=== PATIENT | female | born 1955 | race Caucasian/White ===

== ENCOUNTER 2021-01-23 10:45 | Emergency (ER) | payer OTHER ==
[~2021-01-23] VITALS: Ht 165.1 cm; Wt 108.4 kg
[2021-01-23 11:38] LABS: Basophils # (auto) 0.1 10 ^3/uL (0-0.2); Basophils % (auto) 0.7 % (0.0-2.0); Eosinophils # (auto) 0.1 10 ^3/uL (0-0.8); Eosinophils % (auto) 0.7 % (0.0-7.0); Hemoglobin 14.4 g/dL (12.2-16.2); Lymphocytes # (auto) 1.7 10 ^3/uL (0.4-5.4); Lymphocytes % (auto) 14.5 % (10.0-50.0); Mean Corpuscular Hemoglobin 30.1 pg (28.0-32.0); Mean Corpuscular Hgb Conc. 33.4 g/dL (32.0-36.0); Monocytes # (auto) 0.6 10 ^3/uL (0-1.3); Monocytes % (auto) 5.3 % (0.0-12.0); Neutrophils # (auto) 9.3 10 ^3/uL (1.6-8.6); Neutrophils % (auto) 78.8 % (37.0-80.0); Nucleated Red Blood Cells % 0.1 %; Platelet Count (auto) 257 10^3/uL (140-450); Red Blood Cells 4.77 10^6/uL (4.0-5.20); Red Cell Distribution Width 14.3 % (11.8-14.3); White Blood Cell 11.8 10^3/uL (4.4-10.8)
[2021-01-23 11:50] LABS: Albumin 3.2 g/dL (3.4-5.0); Anion Gap 4 (5-15); Blood Urea Nitrogen 19 mg/dL (7-18); Calcium 10.1 mg/dL (8.5-10.1); Carbon Dioxide 30 mmol/L (21-32); Chloride 106 mmol/L (98-107); Glucose 100 mg/dL (74-106); INR 1.16 (0.9-1.15); Partial Thromboplastin Time 40.4 sec (23.0-31.2); Potassium 4.2 mmol/L (3.5-5.1); Sodium 140 mmol/L (136-145)
[2021-01-23 11:55] LABS: Alanine Aminotransferase 17 U/L (13-56); Alkaline Phosphatase 107 U/L (45-117); Aspartate Aminotransferase 10 U/L (15-37); BUN/Creatinine Ratio 25.7; Bilirubin, Total 0.4 mg/dL (0.2-1.0); GFR African American 102 mL/min; GFR Non-African American 84 mL/min; Total Protein 7.1 g/dL (6.4-8.2)
[2021-01-23] MEDS ORDERED: ENOXAPARIN SOD 120 MG/0.8 ML SYRINGE SC ONE (13:45)
[2021-01-23 13:51] LABS: Urine Bacteria NONE SEEN /hpf (None Seen); Urine Blood Negative /uL (Negative); Urine Specific Gravity 1.027 (1.001-1.035); Urine WBC 1 /hpf (0 - 5)
[2021-01-23] MEDS ORDERED: FUROSEMIDE 40 MG/4 ML VIAL IV ONE (14:00)
[2021-01-23] MEDS ORDERED: cefTRIAXone 1GM/50ML D5W 50 ML IV ONE (14:00)
[2021-01-23] MEDS ORDERED: HYDROmorphone HCL 2 MG/ML VL IV ONE (16:15)
[2021-01-23] MEDS ORDERED: ONDANSETRON HCL 4 MG/2 ML VIAL IV ONE (16:15)
[2021-01-23 16:28] VITALS: BP 161/89
== END 2021-01-23 16:50 | disposition designated cancer center or children's hospital (05) ==
LOC: EDBD 10:45 → ER 10:45
DX: M79.89 Other specified soft tissue disorders (principal); I49.3 Ventricular premature depolarization; I10 Essential (primary) hypertension; E11.9 Type 2 diabetes mellitus without complications; Z20.822 Contact with and (suspected) exposure to COVID-19
CPT/HCPCS: 36415; 71045; 73201; 80053; 81001; 82962; 83880; 84484; 85025; 85610; 85730; 87426; 93005; 93971; 96365; 96372; 96375; 99285; C9803; J0696; J1170; J1650; J1940; J2405; U0003

== ENCOUNTER 2021-07-26 17:08 | Inpatient (IN) | payer MEDICARE, OTHER ==
[~2021-07-26] VITALS: Ht 167.6 cm; Wt 111.3 kg
[2021-07-26] MEDS ORDERED: FUROSEMIDE 40 MG/4 ML VIAL IV ONE (18:00)
[2021-07-26 18:33] LABS: Basophils # (auto) 0.1 10 ^3/uL (0-0.2); Eosinophils # (auto) 0.1 10 ^3/uL (0-0.8); Eosinophils % (auto) 0.9 % (0.0-7.0); Hemoglobin 14.7 g/dL (12.2-16.2); Lymphocytes # (auto) 1.4 10 ^3/uL (0.4-5.4); Mean Corpuscular Hemoglobin 27.5 pg (28.0-32.0); Mean Corpuscular Hgb Conc. 31.4 g/dL (32.0-36.0); Mean Corpuscular Volume 87.7 fL (80.0-100.0); Monocytes # (auto) 0.6 10 ^3/uL (0-1.3); Neutrophils # (auto) 5.2 10 ^3/uL (1.6-8.6); Neutrophils % (auto) 71.1 % (37.0-80.0); Nucleated Red Blood Cells % 0.4 %; Red Blood Cells 5.36 10^6/uL (4.0-5.20); Red Cell Distribution Width 17.2 % (11.8-14.3); White Blood Cell 7.2 10^3/uL (4.4-10.8)
[2021-07-26 18:50] LABS: INR 1.31 (0.9-1.15); Partial Thromboplastin Time 23.7 sec (23.6-33.0)
[2021-07-26 18:53] LABS: Chloride 108 mmol/L (98-107); Potassium 4.9 mmol/L (3.5-5.1); Sodium 143 mmol/L (136-145)
[2021-07-26 19:02] LABS: Alanine Aminotransferase 51 U/L (13-56); Albumin 2.5 g/dL (3.4-5.0); Alkaline Phosphatase 226 U/L (45-117); Aspartate Aminotransferase 27 U/L (15-37); BUN/Creatinine Ratio 43.4; Bilirubin, Total 0.7 mg/dL (0.2-1.0); Blood Urea Nitrogen 46 mg/dL (7-18); Calcium 9.3 mg/dL (8.5-10.1); Carbon Dioxide 32 mmol/L (21-32); GFR African American 67 mL/min; GFR Non-African American 55 mL/min; Glucose 79 mg/dL (74-106); Total Protein 5.9 g/dL (6.4-8.2)
[2021-07-26 19:06] LABS: Anion Gap 3 (5-15)
[2021-07-26 22:36] LABS: Urine Bacteria FEW /hpf (None Seen); Urine Blood 1+ /uL (Negative); Urine Hyaline Cast FEW /lpf (0 - 2); Urine Mucus FEW (None Seen); Urine Specific Gravity 1.008 (1.001-1.035); Urine WBC 4 /hpf (0 - 5)
[2021-07-27] MEDS ORDERED: FUROSEMIDE 40 MG/4 ML VIAL IV ONE (10:00)
[2021-07-27 10:25] VITALS: BP 126/84
[2021-07-27 12:00] VITALS: BP 136/74
[2021-07-27] MEDS ORDERED: MORPHINE SULFATE INJECTION 2 MG/ML SYRG IV PRN ×2 (13:30→15:15)
[2021-07-27] MEDS ORDERED: NITROGLYCERIN 0.4 MG SL TAB SL PRN ×2 (13:30→15:15)
[2021-07-27 14:00] VITALS: BP 123/81
[2021-07-27] MEDS ORDERED: ALBUTEROL SULF 2.5 MG/0.5ML(0.5%) NEB SOLN NEB ONE (14:15)
[2021-07-27] MEDS ORDERED: IPRATROPIUM BROM 0.5 MG/2.5ML INH SOL NEB ONE (14:15)
[2021-07-27] MEDS ORDERED: methylPREDNISolone SOD SUCC 125 MG/2 ML VL IV ONE (15:15)
[2021-07-27] MEDS: SODIUM CHLORIDE 0.9% 1,000 ML IV SCH (15:15)
[2021-07-27] MEDS: ATORVASTATIN 20 MG TAB PO ONE (15:15)
[2021-07-27] MEDS ORDERED: levoFLOXacin 500MG 100 ML IV ONE (15:15)
[2021-07-27] MEDS ORDERED: METOPROLOL SUCCINATE XL 50 MG TAB PO ONE (15:15)
[2021-07-27] MEDS ORDERED: MAGNESIUM SULFATE 1GM/100ML 100 ML IV ONE (15:15)
[2021-07-27] MEDS ORDERED: DEXTROSE (50%) 50ML SYRG IV PRN (15:15)
[2021-07-27] MEDS ORDERED: POTASSIUM CHL 20 Meq TABLET PO ONE (15:15)
[2021-07-27] MEDS ORDERED: FAMOTIDINE (10MG/ML) 2ML VL IV ONE (15:15)
[2021-07-27 16:00] VITALS: BP 108/75
[2021-07-27] MEDS: ACCU-CHEK COMFORT CURVE STRIP VI SCH ×2 (16:40→22:23)
[2021-07-27] MEDS: InsuLIN REG 1unit/0.01ml Soln (100units/ml) SC SCH ×2 (17:00→22:30)
[2021-07-27] MEDS: FUROSEMIDE 40 MG/4 ML VIAL IV SCH (18:40)
[2021-07-27] MEDS: IPRATROPIUM BROM 0.5 MG/2.5ML INH SOL NEB SCH (19:35)
[2021-07-27] MEDS: ALBUTEROL SULF 2.5 MG/0.5ML(0.5%) NEB SOLN NEB SCH (19:35)
[2021-07-27 21:01] LABS: INR 1.21 (0.9-1.15)
[2021-07-27] MEDS: APIXABAN 2.5 MG TAB PO SCH (22:30)
[2021-07-27] MEDS: methylPREDNISolone SOD SUCC 40 MG/ML VL IV SCH (22:30)
[2021-07-27] MEDS: ATORVASTATIN 20 MG TAB PO SCH (22:30)
[2021-07-27] MEDS: FAMOTIDINE (10MG/ML) 2ML VL IV SCH (22:30)
[2021-07-27 22:53] VITALS: BP 132/67
[2021-07-28] MEDS: ALBUTEROL SULF 2.5 MG/0.5ML(0.5%) NEB SOLN NEB SCH ×7 (00:39→22:21)
[2021-07-28] MEDS: IPRATROPIUM BROM 0.5 MG/2.5ML INH SOL NEB SCH ×7 (00:39→22:21)
[2021-07-28 05:00] VITALS: BP 128/83
[2021-07-28] MEDS: FUROSEMIDE 40 MG/4 ML VIAL IV SCH ×2 (05:38→18:22)
[2021-07-28] MEDS: methylPREDNISolone SOD SUCC 40 MG/ML VL IV SCH ×3 (05:38→21:25)
[2021-07-28] MEDS: InsuLIN REG 1unit/0.01ml Soln (100units/ml) SC SCH ×4 (07:00→21:29)
[2021-07-28] MEDS: ACCU-CHEK COMFORT CURVE STRIP VI SCH ×4 (07:05→21:36)
[2021-07-28 08:00] VITALS: BP 133/77
[2021-07-28] MEDS: levoFLOXacin 500MG 100 ML IV SCH (10:46)
[2021-07-28] MEDS: FAMOTIDINE (10MG/ML) 2ML VL IV SCH ×2 (10:46→21:25)
[2021-07-28] MEDS: APIXABAN 2.5 MG TAB PO SCH ×2 (10:47→21:26)
[2021-07-28] MEDS: ASPirin 81 mg TAB PO SCH (10:47)
[2021-07-28] MEDS: POTASSIUM CHL 20 Meq TABLET PO SCH (10:47)
[2021-07-28] MEDS: LISINOPRIL 5 MG TAB PO SCH (10:48)
[2021-07-28] MEDS: METOPROLOL SUCCINATE XL 50 MG TAB PO SCH (10:48)
[2021-07-28] MEDS: SODIUM CHLORIDE 0.9% 1,000 ML IV SCH (11:15)
[2021-07-28 13:00] VITALS: BP 164/87
[2021-07-28] MEDS ORDERED: IOHEXOL 350 MG/ML 100ML IJ ONE (15:46)
[2021-07-28 16:00] VITALS: BP 126/81
[2021-07-28] MEDS: OXYCODONE W/ ACETAMINOPHEN 5/325MG TABLET PO PRN (19:29)
[2021-07-28] MEDS: ATORVASTATIN 20 MG TAB PO SCH (21:26)
[2021-07-28 22:00] VITALS: BP 133/79
[2021-07-29] MEDS: IPRATROPIUM BROM 0.5 MG/2.5ML INH SOL NEB SCH ×6 (02:48→21:37)
[2021-07-29] MEDS: ALBUTEROL SULF 2.5 MG/0.5ML(0.5%) NEB SOLN NEB SCH ×6 (02:48→21:37)
[2021-07-29 05:00] VITALS: BP 132/91
[2021-07-29] MEDS: methylPREDNISolone SOD SUCC 40 MG/ML VL IV SCH ×3 (05:44→22:00)
[2021-07-29] MEDS: FUROSEMIDE 40 MG/4 ML VIAL IV SCH ×2 (05:45→17:28)
[2021-07-29] MEDS: SODIUM CHLORIDE 0.9% 1,000 ML IV SCH (05:52)
[2021-07-29] MEDS: InsuLIN REG 1unit/0.01ml Soln (100units/ml) SC SCH ×4 (06:18→22:00)
[2021-07-29] MEDS: ACCU-CHEK COMFORT CURVE STRIP VI SCH ×4 (06:18→22:00)
[2021-07-29] MEDS ORDERED: PERCOT PO (07:32)
[2021-07-29 08:00] VITALS: BP 138/68
[2021-07-29] MEDS: APIXABAN 2.5 MG TAB PO SCH (09:15)
[2021-07-29] MEDS: ASPirin 81 mg TAB PO SCH (09:15)
[2021-07-29] MEDS: FAMOTIDINE (10MG/ML) 2ML VL IV SCH ×2 (09:15→22:00)
[2021-07-29] MEDS: levoFLOXacin 500MG 100 ML IV SCH (09:15)
[2021-07-29] MEDS: LISINOPRIL 5 MG TAB PO SCH (09:16)
[2021-07-29] MEDS: METOPROLOL SUCCINATE XL 50 MG TAB PO SCH (09:16)
[2021-07-29] MEDS: POTASSIUM CHL 20 Meq TABLET PO SCH (09:16)
[2021-07-29 12:00] VITALS: BP 140/95
[2021-07-29 16:00] VITALS: BP 152/77
[2021-07-29] MEDS: OXYCODONE W/ ACETAMINOPHEN 5/325MG TABLET PO PRN (17:59)
[2021-07-29 22:00] VITALS: BP 140/82
[2021-07-29] MEDS: CARVEDILOL 12.5 MG TAB PO SCH (22:00)
[2021-07-29] MEDS: ATORVASTATIN 20 MG TAB PO SCH (22:00)
[2021-07-30] MEDS: IPRATROPIUM BROM 0.5 MG/2.5ML INH SOL NEB SCH ×7 (02:08→21:44)
[2021-07-30] MEDS: ALBUTEROL SULF 2.5 MG/0.5ML(0.5%) NEB SOLN NEB SCH ×7 (02:08→21:44)
[2021-07-30] MEDS: OXYCODONE W/ ACETAMINOPHEN 5/325MG TABLET PO PRN (03:36)
[2021-07-30 05:00] VITALS: BP 146/71
[2021-07-30] MEDS: FUROSEMIDE 40 MG/4 ML VIAL IV SCH ×2 (06:00→18:00)
[2021-07-30] MEDS: ACCU-CHEK COMFORT CURVE STRIP VI SCH ×4 (06:26→21:52)
[2021-07-30] MEDS: methylPREDNISolone SOD SUCC 40 MG/ML VL IV SCH ×3 (06:27→21:51)
[2021-07-30] MEDS: InsuLIN REG 1unit/0.01ml Soln (100units/ml) SC SCH ×4 (06:28→22:27)
[2021-07-30 07:24] LABS: Basophils # (auto) 0 10 ^3/uL (0-0.2); Basophils % (auto) 0.3 % (0.0-2.0); Eosinophils # (auto) 0 10 ^3/uL (0-0.8); Hematocrit 45.4 % (36.0-46.0); Hemoglobin 14.7 g/dL (12.2-16.2); Lymphocytes # (auto) 0.4 10 ^3/uL (0.4-5.4); Lymphocytes % (auto) 3.9 % (10.0-50.0); Mean Corpuscular Hemoglobin 28.1 pg (28.0-32.0); Mean Corpuscular Hgb Conc. 32.3 g/dL (32.0-36.0); Mean Corpuscular Volume 86.9 fL (80.0-100.0); Monocytes # (auto) 0.2 10 ^3/uL (0-1.3); Monocytes % (auto) 2.3 % (0.0-12.0); Neutrophils % (auto) 93.5 % (37.0-80.0); Nucleated Red Blood Cells % 0.2 %; Red Blood Cells 5.22 10^6/uL (4.0-5.20); Red Cell Distribution Width 17.1 % (11.8-14.3); White Blood Cell 9.6 10^3/uL (4.4-10.8)
[2021-07-30 07:28] LABS: INR 1.27 (0.9-1.15); Partial Thromboplastin Time 25.6 sec (23.6-33.0)
[2021-07-30 07:29] LABS: BUN/Creatinine Ratio 35.3; Calcium 9.5 mg/dL (8.5-10.1); Potassium 4.1 mmol/L (3.5-5.1)
[2021-07-30 09:00] VITALS: BP 154/80
[2021-07-30] MEDS: LISINOPRIL 5 MG TAB PO SCH (09:53)
[2021-07-30] MEDS: levoFLOXacin 500MG 100 ML IV SCH (09:53)
[2021-07-30] MEDS: POTASSIUM CHL 20 Meq TABLET PO SCH (09:53)
[2021-07-30] MEDS: ASPirin 81 mg TAB PO SCH (09:53)
[2021-07-30] MEDS: CARVEDILOL 12.5 MG TAB PO SCH ×2 (09:53→22:00)
[2021-07-30] MEDS: FAMOTIDINE (10MG/ML) 2ML VL IV SCH ×2 (09:53→21:51)
[2021-07-30] MEDS ORDERED: LIDOCAINE 2%HCL (LOCAL ANESTH.) INJ 20ML MDV ONE (10:22)
[2021-07-30] MEDS ORDERED: MIDAZOLAM HCL 2MG/2ML 2ml VIAL (1mg/ml) ONE (10:45)
[2021-07-30] MEDS ORDERED: fentaNYL CITRATE 100 MCG/2 ML VL ONE (10:45)
[2021-07-30] MEDS ORDERED: VANCOMYCIN HCL 1000 MG VL ONE (10:45)
[2021-07-30] MEDS ORDERED: VANCOMYCIN 1GM/250ML 250 ML IV ONE (10:46)
[2021-07-30 15:49] VITALS: BP 147/76
[2021-07-30 17:26] VITALS: BP 129/101
[2021-07-30] MEDS: APIXABAN 5 MG TAB PO SCH (21:51)
[2021-07-30] MEDS: ATORVASTATIN 20 MG TAB PO SCH (21:52)
[2021-07-30 22:00] VITALS: BP 154/103
[2021-07-31] MEDS: ALBUTEROL SULF 2.5 MG/0.5ML(0.5%) NEB SOLN NEB SCH ×6 (03:02→20:53)
[2021-07-31] MEDS: IPRATROPIUM BROM 0.5 MG/2.5ML INH SOL NEB SCH ×6 (03:02→20:53)
[2021-07-31 05:00] VITALS: BP 140/93
[2021-07-31] MEDS: FUROSEMIDE 40 MG/4 ML VIAL IV SCH ×2 (06:00→17:35)
[2021-07-31] MEDS: methylPREDNISolone SOD SUCC 40 MG/ML VL IV SCH ×3 (06:00→21:31)
[2021-07-31] MEDS: ACCU-CHEK COMFORT CURVE STRIP VI SCH ×4 (06:22→21:36)
[2021-07-31] MEDS: InsuLIN REG 1unit/0.01ml Soln (100units/ml) SC SCH ×4 (06:23→21:41)
[2021-07-31 09:00] VITALS: BP 141/100
[2021-07-31] MEDS: levoFLOXacin 500MG 100 ML IV SCH (09:39)
[2021-07-31] MEDS: FAMOTIDINE (10MG/ML) 2ML VL IV SCH ×2 (09:39→21:31)
[2021-07-31] MEDS: ASPirin 81 mg TAB PO SCH (09:39)
[2021-07-31] MEDS: POTASSIUM CHL 20 Meq TABLET PO SCH (09:40)
[2021-07-31] MEDS: CARVEDILOL 12.5 MG TAB PO SCH ×2 (09:40→21:34)
[2021-07-31] MEDS: APIXABAN 5 MG TAB PO SCH ×2 (09:40→21:35)
[2021-07-31] MEDS ORDERED: METOPROLOL TARTRATE 50 MG TAB PO ONE (10:00)
[2021-07-31] MEDS ORDERED: SACUBITRIL-VALSARTAN 24mg/26mg TAB PO SCH (10:00)
[2021-07-31 13:00] VITALS: BP 104/70
[2021-07-31] MEDS ORDERED: ALPRAZolam 0.5 MG TAB PO PRN (16:45)
[2021-07-31] MEDS ORDERED: DIGOXIN 0.25 MG TAB PO ONE (16:45)
[2021-07-31 17:00] VITALS: BP 158/106
[2021-07-31] MEDS: LORazepam 2MG/ML-1ML VIAL IV PRN (18:29)
[2021-07-31] MEDS: SACUBITRIL-VALSARTAN 24mg/26mg TAB PO SCH (21:31)
[2021-07-31] MEDS: ATORVASTATIN 20 MG TAB PO SCH (21:35)
[2021-07-31 22:02] VITALS: BP 117/86
[2021-07-31] MEDS: OXYCODONE W/ ACETAMINOPHEN 5/325MG TABLET PO PRN (23:09)
[2021-08-01] VITALS (7 sets, daily range): BP systolic 109–142; BP diastolic 55–76
[2021-08-01] MEDS: ALBUTEROL SULF 2.5 MG/0.5ML(0.5%) NEB SOLN NEB SCH ×6 (02:29→22:30)
[2021-08-01] MEDS: IPRATROPIUM BROM 0.5 MG/2.5ML INH SOL NEB SCH ×6 (02:29→22:30)
[2021-08-01] MEDS: methylPREDNISolone SOD SUCC 40 MG/ML VL IV SCH (06:03)
[2021-08-01] MEDS: ACCU-CHEK COMFORT CURVE STRIP VI SCH ×4 (06:04→22:02)
[2021-08-01] MEDS: FUROSEMIDE 40 MG/4 ML VIAL IV SCH ×2 (06:04→17:26)
[2021-08-01] MEDS: InsuLIN REG 1unit/0.01ml Soln (100units/ml) SC SCH ×4 (06:09→22:08)
[2021-08-01] MEDS ORDERED: METOPROLOL TARTRATE 50 MG TAB PO ONE (10:00)
[2021-08-01] MEDS: FAMOTIDINE (10MG/ML) 2ML VL IV SCH ×2 (10:48→22:00)
[2021-08-01] MEDS: levoFLOXacin 500MG 100 ML IV SCH (10:48)
[2021-08-01] MEDS: ASPirin 81 mg TAB PO SCH (10:49)
[2021-08-01] MEDS: APIXABAN 5 MG TAB PO SCH ×2 (10:50→22:00)
[2021-08-01] MEDS: POTASSIUM CHL 20 Meq TABLET PO SCH (10:50)
[2021-08-01] MEDS: CARVEDILOL 12.5 MG TAB PO SCH ×2 (10:50→22:01)
[2021-08-01] MEDS: SACUBITRIL-VALSARTAN 24mg/26mg TAB PO SCH ×2 (10:50→22:01)
[2021-08-01] MEDS: DIGOXIN 0.125 MG TAB PO SCH (10:51)
[2021-08-01] MEDS: OXYCODONE W/ ACETAMINOPHEN 5/325MG TABLET PO PRN (19:32)
[2021-08-01] MEDS: ATORVASTATIN 20 MG TAB PO SCH (22:01)
[2021-08-01] MEDS: LORazepam 2MG/ML-1ML VIAL IV PRN (22:08)
[2021-08-02] MEDS: ALBUTEROL SULF 2.5 MG/0.5ML(0.5%) NEB SOLN NEB SCH ×6 (02:48→22:50)
[2021-08-02] MEDS: IPRATROPIUM BROM 0.5 MG/2.5ML INH SOL NEB SCH ×6 (02:48→22:50)
[2021-08-02 05:02] VITALS: BP 129/81
[2021-08-02] MEDS: FUROSEMIDE 40 MG/4 ML VIAL IV SCH ×2 (05:27→17:32)
[2021-08-02] MEDS: ACCU-CHEK COMFORT CURVE STRIP VI SCH ×4 (06:19→21:38)
[2021-08-02] MEDS: InsuLIN REG 1unit/0.01ml Soln (100units/ml) SC SCH ×4 (06:20→21:40)
[2021-08-02 08:00] VITALS: BP 112/55
[2021-08-02 09:00] VITALS: BP 112/55
[2021-08-02] MEDS ORDERED: ACETAMINOPHEN 325 MG TAB PO PRN (10:30)
[2021-08-02] MEDS: levoFLOXacin 500MG 100 ML IV SCH (10:41)
[2021-08-02] MEDS: ASPirin 81 mg TAB PO SCH (10:42)
[2021-08-02] MEDS: methylPREDNISolone SOD SUCC 40 MG/ML VL IV SCH (10:42)
[2021-08-02] MEDS: FAMOTIDINE (10MG/ML) 2ML VL IV SCH ×2 (10:42→21:37)
[2021-08-02] MEDS: DIGOXIN 0.125 MG TAB PO SCH (10:43)
[2021-08-02] MEDS: APIXABAN 5 MG TAB PO SCH ×2 (10:43→21:37)
[2021-08-02] MEDS: SACUBITRIL-VALSARTAN 24mg/26mg TAB PO SCH ×2 (10:43→21:37)
[2021-08-02] MEDS: CARVEDILOL 12.5 MG TAB PO SCH ×2 (10:43→22:00)
[2021-08-02] MEDS ORDERED: MAGNESIUM SULFATE 1GM/100ML 100 ML IV ONE (11:00)
[2021-08-02 13:00] VITALS: BP 121/59
[2021-08-02] MEDS: INSULIN LANTUS (GLARGINE) 1 /0.01ml (100units/ml) SC SCH (14:53)
[2021-08-02 16:50] VITALS: BP 99/76
[2021-08-02] MEDS: ATORVASTATIN 20 MG TAB PO SCH (21:38)
[2021-08-02 21:54] VITALS: BP 91/57
[2021-08-03] MEDS: OXYCODONE W/ ACETAMINOPHEN 5/325MG TABLET PO PRN ×2 (00:49→20:37)
[2021-08-03] MEDS: IPRATROPIUM BROM 0.5 MG/2.5ML INH SOL NEB SCH ×6 (02:40→20:40)
[2021-08-03] MEDS: ALBUTEROL SULF 2.5 MG/0.5ML(0.5%) NEB SOLN NEB SCH ×6 (02:40→20:40)
[2021-08-03 05:00] VITALS: BP 109/64
[2021-08-03] MEDS: InsuLIN REG 1unit/0.01ml Soln (100units/ml) SC SCH ×4 (06:33→22:42)
[2021-08-03] MEDS: INSULIN LANTUS (GLARGINE) 1 /0.01ml (100units/ml) SC SCH (06:33)
[2021-08-03] MEDS: ACCU-CHEK COMFORT CURVE STRIP VI SCH ×4 (06:35→22:18)
[2021-08-03] MEDS: FUROSEMIDE 40 MG/4 ML VIAL IV SCH ×2 (06:36→18:20)
[2021-08-03 09:00] VITALS: BP 97/75
[2021-08-03] MEDS: methylPREDNISolone SOD SUCC 40 MG/ML VL IV SCH (09:32)
[2021-08-03] MEDS: ASPirin 81 mg TAB PO SCH (09:32)
[2021-08-03] MEDS: SACUBITRIL-VALSARTAN 24mg/26mg TAB PO SCH ×2 (09:33→22:17)
[2021-08-03] MEDS: APIXABAN 5 MG TAB PO SCH ×2 (09:33→22:17)
[2021-08-03] MEDS: CARVEDILOL 12.5 MG TAB PO SCH ×2 (09:34→22:17)
[2021-08-03] MEDS: levoFLOXacin 500MG 100 ML IV SCH (09:35)
[2021-08-03] MEDS: DIGOXIN 0.125 MG TAB PO SCH (09:36)
[2021-08-03] MEDS: FAMOTIDINE (10MG/ML) 2ML VL IV SCH ×2 (11:28→22:16)
[2021-08-03 13:00] VITALS: BP 114/79
[2021-08-03 17:00] VITALS: BP 111/65
[2021-08-03 22:00] VITALS: BP 111/53
[2021-08-03] MEDS: ATORVASTATIN 20 MG TAB PO SCH (22:17)
[2021-08-04 05:00] VITALS: BP 102/50
[2021-08-04 05:51] LABS: Basophils # (auto) 0 10 ^3/uL (0-0.2); Basophils % (auto) 0.1 % (0.0-2.0); Eosinophils # (auto) 0 10 ^3/uL (0-0.8); Eosinophils % (auto) 0.2 % (0.0-7.0); Hematocrit 49.5 % (36.0-46.0); Lymphocytes # (auto) 0.6 10 ^3/uL (0.4-5.4); Lymphocytes % (auto) 5.3 % (10.0-50.0); Mean Corpuscular Hemoglobin 27.7 pg (28.0-32.0); Mean Corpuscular Hgb Conc. 32.2 g/dL (32.0-36.0); Monocytes # (auto) 0.9 10 ^3/uL (0-1.3); Monocytes % (auto) 7.4 % (0.0-12.0); Neutrophils # (auto) 10.7 10 ^3/uL (1.6-8.6); Red Blood Cells 5.76 10^6/uL (4.0-5.20); White Blood Cell 12.3 10^3/uL (4.4-10.8)
[2021-08-04] MEDS: FUROSEMIDE 40 MG/4 ML VIAL IV SCH ×2 (06:00→18:00)
[2021-08-04 06:04] LABS: Potassium 3.5 mmol/L (3.5-5.1)
[2021-08-04 06:15] LABS: Albumin 2.1 g/dL (3.4-5.0); BUN/Creatinine Ratio 35.8; Calcium 9.1 mg/dL (8.5-10.1)
[2021-08-04 06:18] LABS: Bilirubin, Total 1.7 mg/dL (0.2-1.0); Total Protein 5.3 g/dL (6.4-8.2)
[2021-08-04] MEDS: InsuLIN REG 1unit/0.01ml Soln (100units/ml) SC SCH ×4 (06:32→21:58)
[2021-08-04] MEDS: INSULIN LANTUS (GLARGINE) 1 /0.01ml (100units/ml) SC SCH (06:33)
[2021-08-04] MEDS: ACCU-CHEK COMFORT CURVE STRIP VI SCH ×4 (06:33→21:50)
[2021-08-04] MEDS: IPRATROPIUM BROM 0.5 MG/2.5ML INH SOL NEB SCH ×5 (06:57→21:36)
[2021-08-04] MEDS: ALBUTEROL SULF 2.5 MG/0.5ML(0.5%) NEB SOLN NEB SCH ×5 (06:57→21:36)
[2021-08-04 09:00] VITALS: BP 116/66
[2021-08-04] MEDS: FAMOTIDINE (10MG/ML) 2ML VL IV SCH ×2 (09:51→21:49)
[2021-08-04] MEDS: levoFLOXacin 500MG 100 ML IV SCH (09:51)
[2021-08-04] MEDS: CARVEDILOL 12.5 MG TAB PO SCH ×2 (09:52→21:49)
[2021-08-04] MEDS: SACUBITRIL-VALSARTAN 24mg/26mg TAB PO SCH ×2 (09:52→21:49)
[2021-08-04] MEDS: ASPirin 81 mg TAB PO SCH (09:52)
[2021-08-04] MEDS: methylPREDNISolone SOD SUCC 40 MG/ML VL IV SCH (09:52)
[2021-08-04] MEDS: APIXABAN 5 MG TAB PO SCH ×2 (09:52→21:49)
[2021-08-04] MEDS: DIGOXIN 0.125 MG TAB PO SCH (09:53)
[2021-08-04 13:00] VITALS: BP 149/61
[2021-08-04 16:49] VITALS: BP 110/69
[2021-08-04] MEDS: LORazepam 2MG/ML-1ML VIAL IV PRN (17:15)
[2021-08-04] MEDS: Glucerna Carbsteady SHAKE Vanilla 8oz PO SCH (18:00)
[2021-08-04] MEDS: OXYCODONE W/ ACETAMINOPHEN 5/325MG TABLET PO PRN (20:20)
[2021-08-04] MEDS: ATORVASTATIN 20 MG TAB PO SCH (21:49)
[2021-08-04 22:00] VITALS: BP 129/66
[2021-08-05] MEDS: IPRATROPIUM BROM 0.5 MG/2.5ML INH SOL NEB SCH ×5 (02:02→23:35)
[2021-08-05] MEDS: ALBUTEROL SULF 2.5 MG/0.5ML(0.5%) NEB SOLN NEB SCH ×5 (02:02→23:35)
[2021-08-05 05:00] VITALS: BP 131/72
[2021-08-05] MEDS: ACCU-CHEK COMFORT CURVE STRIP VI SCH ×3 (06:21→21:59)
[2021-08-05] MEDS: InsuLIN REG 1unit/0.01ml Soln (100units/ml) SC SCH ×3 (06:22→22:02)
[2021-08-05] MEDS: INSULIN LANTUS (GLARGINE) 1 /0.01ml (100units/ml) SC SCH (06:28)
[2021-08-05] MEDS: FUROSEMIDE 40 MG/4 ML VIAL IV SCH ×2 (06:29→18:41)
[2021-08-05 06:57] LABS: Basophils # (auto) 0 10 ^3/uL (0-0.2); Basophils % (auto) 0.2 % (0.0-2.0); Eosinophils # (auto) 0 10 ^3/uL (0-0.8); Eosinophils % (auto) 0.1 % (0.0-7.0); Hematocrit 50.2 % (36.0-46.0); Lymphocytes # (auto) 0.6 10 ^3/uL (0.4-5.4); Lymphocytes % (auto) 4.5 % (10.0-50.0); Mean Corpuscular Hemoglobin 27.6 pg (28.0-32.0); Mean Corpuscular Hgb Conc. 31.8 g/dL (32.0-36.0); Mean Corpuscular Volume 86.8 fL (80.0-100.0); Monocytes # (auto) 0.9 10 ^3/uL (0-1.3); Monocytes % (auto) 6.7 % (0.0-12.0); Neutrophils # (auto) 12.4 10 ^3/uL (1.6-8.6); Neutrophils % (auto) 88.5 % (37.0-80.0); Red Blood Cells 5.78 10^6/uL (4.0-5.20); Red Cell Distribution Width 17.7 % (11.8-14.3)
[2021-08-05 07:11] LABS: BUN/Creatinine Ratio 39.4; Calcium 9.3 mg/dL (8.5-10.1); Potassium 3.6 mmol/L (3.5-5.1)
[2021-08-05 09:00] VITALS: BP 128/74
[2021-08-05] MEDS: FAMOTIDINE (10MG/ML) 2ML VL IV SCH ×2 (09:59→21:58)
[2021-08-05] MEDS: Glucerna Carbsteady SHAKE Vanilla 8oz PO SCH ×3 (09:59→18:22)
[2021-08-05] MEDS: levoFLOXacin 500MG 100 ML IV SCH (09:59)
[2021-08-05] MEDS: ASPirin 81 mg TAB PO SCH (10:00)
[2021-08-05] MEDS: methylPREDNISolone SOD SUCC 40 MG/ML VL IV SCH (10:00)
[2021-08-05] MEDS: CARVEDILOL 12.5 MG TAB PO SCH ×2 (10:00→21:59)
[2021-08-05] MEDS: SACUBITRIL-VALSARTAN 24mg/26mg TAB PO SCH ×2 (10:01→21:59)
[2021-08-05] MEDS: APIXABAN 5 MG TAB PO SCH ×2 (10:01→21:58)
[2021-08-05] MEDS: DIGOXIN 0.125 MG TAB PO SCH (10:02)
[2021-08-05] MEDS ORDERED: VANCOMYCIN 1GM/250ML 250 ML IV ONE (11:26)
[2021-08-05] MEDS ORDERED: VANCOMYCIN PER PHARMACY 0 MG IV SCH (11:30)
[2021-08-05 13:00] VITALS: BP 104/58
[2021-08-05] MEDS: MEROPENEM 1GM IVPB 100 ML IV SCH ×2 (15:43→21:23)
[2021-08-05 17:00] VITALS: BP 112/76
[2021-08-05] MEDS: ATORVASTATIN 20 MG TAB PO SCH (21:59)
[2021-08-05 22:00] VITALS: BP 106/68
[2021-08-05] MEDS ORDERED: DEXTROSE (50%) 50ML SYRG IV PRN (22:30)
[2021-08-06] MEDS: InsuLIN REG 1unit/0.01ml Soln (100units/ml) SC SCH ×6 (00:13→20:55)
[2021-08-06] MEDS: ACCU-CHEK COMFORT CURVE STRIP VI SCH ×6 (00:13→20:50)
[2021-08-06] MEDS: VANCOMYCIN 1GM/250ML 250 ML IV SCH ×4 (01:17→17:29)
[2021-08-06] MEDS: ALBUTEROL SULF 2.5 MG/0.5ML(0.5%) NEB SOLN NEB SCH ×5 (03:16→19:52)
[2021-08-06] MEDS: IPRATROPIUM BROM 0.5 MG/2.5ML INH SOL NEB SCH ×5 (03:16→19:52)
[2021-08-06 05:00] VITALS: BP 93/66
[2021-08-06] MEDS: MEROPENEM 1GM IVPB 100 ML IV SCH ×3 (05:40→20:56)
[2021-08-06] MEDS: FUROSEMIDE 40 MG/4 ML VIAL IV SCH ×2 (06:00→18:05)
[2021-08-06 06:40] LABS: Basophils # (auto) 0 10 ^3/uL (0-0.2); Basophils % (auto) 0.1 % (0.0-2.0); Eosinophils # (auto) 0 10 ^3/uL (0-0.8); Eosinophils % (auto) 0.2 % (0.0-7.0); Hematocrit 47.9 % (36.0-46.0); Hemoglobin 15.6 g/dL (12.2-16.2); Lymphocytes # (auto) 0.6 10 ^3/uL (0.4-5.4); Lymphocytes % (auto) 4.6 % (10.0-50.0); Mean Corpuscular Hemoglobin 28.1 pg (28.0-32.0); Mean Corpuscular Hgb Conc. 32.5 g/dL (32.0-36.0); Mean Corpuscular Volume 86.4 fL (80.0-100.0); Monocytes % (auto) 7.7 % (0.0-12.0); Neutrophils # (auto) 11.7 10 ^3/uL (1.6-8.6); Neutrophils % (auto) 87.4 % (37.0-80.0); Red Blood Cells 5.54 10^6/uL (4.0-5.20); Red Cell Distribution Width 17.2 % (11.8-14.3); White Blood Cell 13.4 10^3/uL (4.4-10.8)
[2021-08-06 07:03] LABS: Potassium 3.5 mmol/L (3.5-5.1)
[2021-08-06 07:07] LABS: BUN/Creatinine Ratio 35.9; Calcium 9.2 mg/dL (8.5-10.1)
[2021-08-06 07:09] LABS: Bilirubin, Total 1.5 mg/dL (0.2-1.0); Total Protein 4.9 g/dL (6.4-8.2)
[2021-08-06] MEDS: INSULIN LANTUS (GLARGINE) 1 /0.01ml (100units/ml) SC SCH (07:16)
[2021-08-06] MEDS: APIXABAN 5 MG TAB PO SCH ×2 (08:38→22:49)
[2021-08-06] MEDS: methylPREDNISolone SOD SUCC 40 MG/ML VL IV SCH (08:38)
[2021-08-06] MEDS: FAMOTIDINE (10MG/ML) 2ML VL IV SCH ×2 (08:38→22:49)
[2021-08-06] MEDS: DIGOXIN 0.125 MG TAB PO SCH (08:39)
[2021-08-06] MEDS: SACUBITRIL-VALSARTAN 24mg/26mg TAB PO SCH ×2 (08:40→22:49)
[2021-08-06] MEDS: CARVEDILOL 12.5 MG TAB PO SCH ×2 (08:40→22:00)
[2021-08-06] MEDS: ASPirin 81 mg TAB PO SCH (08:40)
[2021-08-06] MEDS: Glucerna Carbsteady SHAKE Vanilla 8oz PO SCH ×3 (08:48→18:06)
[2021-08-06 09:00] VITALS: BP 103/68
[2021-08-06] MEDS: OXYCODONE W/ ACETAMINOPHEN 5/325MG TABLET PO PRN (12:47)
[2021-08-06 13:00] VITALS: BP 112/50
[2021-08-06 17:07] VITALS: BP 96/60
[2021-08-06] MEDS: ATORVASTATIN 20 MG TAB PO SCH (22:49)
[2021-08-06 23:07] VITALS: BP 108/50
[2021-08-07] MEDS: ACCU-CHEK COMFORT CURVE STRIP VI SCH ×7 (00:07→23:38)
[2021-08-07] MEDS: InsuLIN REG 1unit/0.01ml Soln (100units/ml) SC SCH ×7 (00:09→23:40)
[2021-08-07] MEDS: ALBUTEROL SULF 2.5 MG/0.5ML(0.5%) NEB SOLN NEB SCH ×7 (01:59→23:12)
[2021-08-07] MEDS: IPRATROPIUM BROM 0.5 MG/2.5ML INH SOL NEB SCH ×7 (01:59→23:12)
[2021-08-07] MEDS: VANCOMYCIN 1GM/250ML 250 ML IV SCH ×2 (03:59→16:30)
[2021-08-07 05:18] VITALS: BP 124/65
[2021-08-07] MEDS: MEROPENEM 1GM IVPB 100 ML IV SCH ×3 (05:43→21:00)
[2021-08-07] MEDS: FUROSEMIDE 40 MG/4 ML VIAL IV SCH ×2 (05:43→17:37)
[2021-08-07 06:09] LABS: Basophils # (auto) 0 10 ^3/uL (0-0.2); Basophils % (auto) 0.2 % (0.0-2.0); Eosinophils # (auto) 0.1 10 ^3/uL (0-0.8); Eosinophils % (auto) 0.4 % (0.0-7.0); Hematocrit 50.7 % (36.0-46.0); Hemoglobin 16.5 g/dL (12.2-16.2); Lymphocytes # (auto) 0.9 10 ^3/uL (0.4-5.4); Lymphocytes % (auto) 5.6 % (10.0-50.0); Mean Corpuscular Hemoglobin 28.2 pg (28.0-32.0); Mean Corpuscular Hgb Conc. 32.5 g/dL (32.0-36.0); Mean Corpuscular Volume 86.7 fL (80.0-100.0); Monocytes # (auto) 1.4 10 ^3/uL (0-1.3); Monocytes % (auto) 8.7 % (0.0-12.0); Neutrophils # (auto) 13.4 10 ^3/uL (1.6-8.6); Neutrophils % (auto) 85.1 % (37.0-80.0); Nucleated Red Blood Cells % 0.1 %; Red Blood Cells 5.85 10^6/uL (4.0-5.20); Red Cell Distribution Width 17.4 % (11.8-14.3); White Blood Cell 15.7 10^3/uL (4.4-10.8)
[2021-08-07] MEDS: INSULIN LANTUS (GLARGINE) 1 /0.01ml (100units/ml) SC SCH ×2 (06:15→21:33)
[2021-08-07 06:36] LABS: Albumin 1.6 g/dL (3.4-5.0); Anion Gap 7 (5-15); Blood Urea Nitrogen 33 mg/dL (7-18); Calcium 9.4 mg/dL (8.5-10.1); Carbon Dioxide 32 mmol/L (21-32); Chloride 96 mmol/L (98-107); Glucose 77 mg/dL (74-106); Potassium 3.8 mmol/L (3.5-5.1); Sodium 135 mmol/L (136-145)
[2021-08-07 06:38] LABS: BUN/Creatinine Ratio 40.2; GFR African American 90 mL/min; GFR Non-African American 74 mL/min
[2021-08-07 06:41] LABS: Alanine Aminotransferase 42 U/L (13-56); Alkaline Phosphatase 119 U/L (45-117); Aspartate Aminotransferase 29 U/L (15-37); Bilirubin, Total 1.4 mg/dL (0.2-1.0)
[2021-08-07] MEDS: Glucerna Carbsteady SHAKE Vanilla 8oz PO SCH ×3 (08:09→18:31)
[2021-08-07 09:03] VITALS: BP 102/51
[2021-08-07] MEDS ORDERED: SENNA 8.6 MG TAB PO ONE (10:00)
[2021-08-07] MEDS: FAMOTIDINE (10MG/ML) 2ML VL IV SCH ×2 (10:14→21:30)
[2021-08-07] MEDS: methylPREDNISolone SOD SUCC 40 MG/ML VL IV SCH (10:15)
[2021-08-07] MEDS: CARVEDILOL 12.5 MG TAB PO SCH ×2 (10:15→21:31)
[2021-08-07] MEDS: ASPirin 81 mg TAB PO SCH (10:15)
[2021-08-07] MEDS: SACUBITRIL-VALSARTAN 24mg/26mg TAB PO SCH ×2 (10:15→21:31)
[2021-08-07] MEDS: DIGOXIN 0.125 MG TAB PO SCH (10:16)
[2021-08-07] MEDS: APIXABAN 5 MG TAB PO SCH ×2 (10:16→21:31)
[2021-08-07] MEDS: OXYCODONE W/ ACETAMINOPHEN 5/325MG TABLET PO PRN (10:54)
[2021-08-07 13:00] VITALS: BP 97/59
[2021-08-07 17:04] VITALS: BP 97/50
[2021-08-07] MEDS: SENNA 8.6 MG TAB PO SCH (21:32)
[2021-08-07] MEDS: ATORVASTATIN 20 MG TAB PO SCH (21:32)
[2021-08-07 22:00] VITALS: BP 111/75
[2021-08-08] MEDS: ALBUTEROL SULF 2.5 MG/0.5ML(0.5%) NEB SOLN NEB SCH ×6 (02:40→22:57)
[2021-08-08] MEDS: IPRATROPIUM BROM 0.5 MG/2.5ML INH SOL NEB SCH ×6 (02:41→22:57)
[2021-08-08] MEDS: VANCOMYCIN 1GM/250ML 250 ML IV SCH ×2 (03:33→16:14)
[2021-08-08] MEDS: ACCU-CHEK COMFORT CURVE STRIP VI SCH ×5 (03:33→20:01)
[2021-08-08] MEDS: InsuLIN REG 1unit/0.01ml Soln (100units/ml) SC SCH ×5 (03:41→20:05)
[2021-08-08 05:00] VITALS: BP 113/65
[2021-08-08] MEDS: MEROPENEM 1GM IVPB 100 ML IV SCH ×3 (05:45→21:31)
[2021-08-08] MEDS: FUROSEMIDE 40 MG/4 ML VIAL IV SCH ×2 (05:46→18:00)
[2021-08-08 05:48] LABS: Basophils # (auto) 0 10 ^3/uL (0-0.2); Basophils % (auto) 0.1 % (0.0-2.0); Eosinophils # (auto) 0 10 ^3/uL (0-0.8); Eosinophils % (auto) 0.1 % (0.0-7.0); Hematocrit 48.1 % (36.0-46.0); Hemoglobin 15.8 g/dL (12.2-16.2); Lymphocytes # (auto) 0.6 10 ^3/uL (0.4-5.4); Lymphocytes % (auto) 4.2 % (10.0-50.0); Mean Corpuscular Hemoglobin 28.1 pg (28.0-32.0); Mean Corpuscular Hgb Conc. 32.7 g/dL (32.0-36.0); Mean Corpuscular Volume 85.7 fL (80.0-100.0); Monocytes # (auto) 1.2 10 ^3/uL (0-1.3); Monocytes % (auto) 7.8 % (0.0-12.0); Neutrophils # (auto) 13.4 10 ^3/uL (1.6-8.6); Neutrophils % (auto) 87.8 % (37.0-80.0); Nucleated Red Blood Cells % 0.1 %; Red Blood Cells 5.61 10^6/uL (4.0-5.20); Red Cell Distribution Width 17.7 % (11.8-14.3); White Blood Cell 15.2 10^3/uL (4.4-10.8)
[2021-08-08 06:17] LABS: BUN/Creatinine Ratio 39.3; Calcium 9.6 mg/dL (8.5-10.1); Potassium 3.8 mmol/L (3.5-5.1)
[2021-08-08 08:00] VITALS: BP 90/67
[2021-08-08] MEDS: Glucerna Carbsteady SHAKE Vanilla 8oz PO SCH ×3 (08:00→18:09)
[2021-08-08] MEDS: ASPirin 81 mg TAB PO SCH (09:28)
[2021-08-08] MEDS: FAMOTIDINE (10MG/ML) 2ML VL IV SCH ×2 (09:28→21:53)
[2021-08-08] MEDS: CARVEDILOL 12.5 MG TAB PO SCH ×2 (09:28→21:54)
[2021-08-08] MEDS: methylPREDNISolone SOD SUCC 40 MG/ML VL IV SCH (09:28)
[2021-08-08] MEDS: APIXABAN 5 MG TAB PO SCH ×2 (09:29→21:54)
[2021-08-08] MEDS: SACUBITRIL-VALSARTAN 24mg/26mg TAB PO SCH ×2 (09:29→21:54)
[2021-08-08] MEDS: DIGOXIN 0.125 MG TAB PO SCH (09:30)
[2021-08-08] MEDS: INSULIN LANTUS (GLARGINE) 1 /0.01ml (100units/ml) SC SCH ×2 (09:40→21:56)
[2021-08-08] MEDS ORDERED: INSULIN LANTUS (GLARGINE) 1 /0.01ml (100units/ml) SC ONE (10:30)
[2021-08-08 12:00] VITALS: BP 128/78
[2021-08-08] MEDS: HYDROcodone-ACET 5/325MG TAB PO PRN ×2 (12:57→20:06)
[2021-08-08 16:00] VITALS: BP 97/75
[2021-08-08] MEDS: ATORVASTATIN 20 MG TAB PO SCH (21:54)
[2021-08-08] MEDS: SENNA 8.6 MG TAB PO SCH (21:55)
[2021-08-08 22:00] VITALS: BP 128/79
[2021-08-09] MEDS: ACCU-CHEK COMFORT CURVE STRIP VI SCH ×7 (00:06→23:35)
[2021-08-09] MEDS: InsuLIN REG 1unit/0.01ml Soln (100units/ml) SC SCH ×7 (00:11→23:25)
[2021-08-09] MEDS: IPRATROPIUM BROM 0.5 MG/2.5ML INH SOL NEB SCH ×6 (02:16→22:14)
[2021-08-09] MEDS: ALBUTEROL SULF 2.5 MG/0.5ML(0.5%) NEB SOLN NEB SCH ×6 (02:16→22:14)
[2021-08-09] MEDS: VANCOMYCIN 1GM/250ML 250 ML IV SCH (03:59)
[2021-08-09 05:00] VITALS: BP 116/59
[2021-08-09] MEDS: MEROPENEM 1GM IVPB 100 ML IV SCH (05:36)
[2021-08-09] MEDS: FUROSEMIDE 40 MG/4 ML VIAL IV SCH (05:36)
[2021-08-09 06:30] LABS: Basophils # (auto) 0 10 ^3/uL (0-0.2); Basophils % (auto) 0.1 % (0.0-2.0); Eosinophils # (auto) 0 10 ^3/uL (0-0.8); Eosinophils % (auto) 0.1 % (0.0-7.0); Hematocrit 45.4 % (36.0-46.0); Hemoglobin 14.3 g/dL (12.2-16.2); Lymphocytes # (auto) 0.7 10 ^3/uL (0.4-5.4); Lymphocytes % (auto) 5.5 % (10.0-50.0); Mean Corpuscular Hgb Conc. 31.5 g/dL (32.0-36.0); Mean Corpuscular Volume 85.8 fL (80.0-100.0); Monocytes % (auto) 7.1 % (0.0-12.0); Neutrophils # (auto) 11.6 10 ^3/uL (1.6-8.6); Neutrophils % (auto) 87.2 % (37.0-80.0); Red Blood Cells 5.28 10^6/uL (4.0-5.20); Red Cell Distribution Width 17.4 % (11.8-14.3); White Blood Cell 13.3 10^3/uL (4.4-10.8)
[2021-08-09 06:57] LABS: Potassium 3.6 mmol/L (3.5-5.1)
[2021-08-09 07:12] LABS: BUN/Creatinine Ratio 49.4; Calcium 9.4 mg/dL (8.5-10.1)
[2021-08-09] MEDS: Glucerna Carbsteady SHAKE Vanilla 8oz PO SCH ×3 (08:10→18:22)
[2021-08-09 08:57] VITALS: BP 94/71
[2021-08-09] MEDS: FAMOTIDINE (10MG/ML) 2ML VL IV SCH (09:59)
[2021-08-09] MEDS: methylPREDNISolone SOD SUCC 40 MG/ML VL IV SCH (09:59)
[2021-08-09] MEDS: CARVEDILOL 12.5 MG TAB PO SCH ×2 (10:00→21:30)
[2021-08-09] MEDS: SACUBITRIL-VALSARTAN 24mg/26mg TAB PO SCH ×2 (10:00→21:16)
[2021-08-09] MEDS: ASPirin 81 mg TAB PO SCH (10:00)
[2021-08-09] MEDS: APIXABAN 5 MG TAB PO SCH ×2 (10:01→21:16)
[2021-08-09] MEDS: HYDROcodone-ACET 5/325MG TAB PO PRN ×2 (10:01→21:18)
[2021-08-09] MEDS: DIGOXIN 0.125 MG TAB PO SCH (10:01)
[2021-08-09] MEDS: INSULIN LANTUS (GLARGINE) 1 /0.01ml (100units/ml) SC SCH ×2 (10:24→21:19)
[2021-08-09] MEDS ORDERED: cefTRIAXone 1GM/50ML D5W 50 ML IV ONE (12:30)
[2021-08-09 12:57] VITALS: BP 100/76
[2021-08-09] MEDS ORDERED: LORazepam 0.5 MG TAB PO ONE (14:15)
[2021-08-09 17:00] VITALS: BP 111/77
[2021-08-09] MEDS: FUROSEMIDE 40 MG TAB PO SCH (17:39)
[2021-08-09] MEDS: ATORVASTATIN 20 MG TAB PO SCH (21:16)
[2021-08-09] MEDS: SENNA 8.6 MG TAB PO SCH (21:17)
[2021-08-09] MEDS: FAMOTIDINE 20 MG TAB PO SCH (21:17)
[2021-08-09 22:00] VITALS: BP 144/75
[2021-08-10] MEDS: IPRATROPIUM BROM 0.5 MG/2.5ML INH SOL NEB SCH ×6 (02:25→22:30)
[2021-08-10] MEDS: ALBUTEROL SULF 2.5 MG/0.5ML(0.5%) NEB SOLN NEB SCH ×6 (02:26→22:30)
[2021-08-10] MEDS: InsuLIN REG 1unit/0.01ml Soln (100units/ml) SC SCH ×5 (04:00→20:00)
[2021-08-10] MEDS: ACCU-CHEK COMFORT CURVE STRIP VI SCH ×5 (04:12→20:00)
[2021-08-10 05:30] VITALS: BP 98/71
[2021-08-10] MEDS: FUROSEMIDE 40 MG TAB PO SCH ×2 (06:00→18:02)
[2021-08-10] MEDS: Glucerna Carbsteady SHAKE Vanilla 8oz PO SCH ×3 (08:14→18:02)
[2021-08-10 09:00] VITALS: BP 121/62
[2021-08-10] MEDS ORDERED: cefTRIAXone 1GM/50ML D5W 50 ML IV SCH (09:00)
[2021-08-10] MEDS: APIXABAN 5 MG TAB PO SCH ×2 (09:37→22:51)
[2021-08-10] MEDS: methylPREDNISolone SOD SUCC 40 MG/ML VL IV SCH (09:37)
[2021-08-10] MEDS: ASPirin 81 mg TAB PO SCH (09:37)
[2021-08-10] MEDS: FAMOTIDINE 20 MG TAB PO SCH ×2 (09:37→22:54)
[2021-08-10] MEDS: SACUBITRIL-VALSARTAN 24mg/26mg TAB PO SCH ×2 (09:38→22:51)
[2021-08-10] MEDS: CARVEDILOL 12.5 MG TAB PO SCH ×2 (09:38→22:53)
[2021-08-10] MEDS: DIGOXIN 0.125 MG TAB PO SCH (09:38)
[2021-08-10] MEDS ORDERED: cefTRIAXone 1GM/50ML D5W 50 ML IV ONE (09:45)
[2021-08-10] MEDS: INSULIN LANTUS (GLARGINE) 1 /0.01ml (100units/ml) SC SCH ×2 (09:52→22:00)
[2021-08-10 13:00] VITALS: BP 98/71
[2021-08-10 13:39] LABS: Urine Bacteria NONE SEEN /hpf (None Seen); Urine Blood 3+ /uL (Negative); Urine Mucus FEW (None Seen); Urine Specific Gravity 1.011 (1.001-1.035); Urine WBC 676 /hpf (0 - 5)
[2021-08-10 17:00] VITALS: BP 107/81
[2021-08-10] MEDS: HYDROcodone-ACET 5/325MG TAB PO PRN (18:34)
[2021-08-10 22:00] VITALS: BP 125/79
[2021-08-10] MEDS: SENNA 8.6 MG TAB PO SCH (22:00)
[2021-08-10] MEDS: ATORVASTATIN 20 MG TAB PO SCH (22:52)
[2021-08-11] VITALS (7 sets, daily range): BP systolic 99–143; BP diastolic 63–89
[2021-08-11] MEDS: IPRATROPIUM BROM 0.5 MG/2.5ML INH SOL NEB SCH ×6 (02:14→21:39)
[2021-08-11] MEDS: ALBUTEROL SULF 2.5 MG/0.5ML(0.5%) NEB SOLN NEB SCH ×6 (02:14→21:39)
[2021-08-11] MEDS: InsuLIN REG 1unit/0.01ml Soln (100units/ml) SC SCH ×7 (04:00→23:47)
[2021-08-11] MEDS: ACCU-CHEK COMFORT CURVE STRIP VI SCH ×7 (04:00→23:46)
[2021-08-11] MEDS: FUROSEMIDE 40 MG TAB PO SCH (06:00)
[2021-08-11] MEDS: Glucerna Carbsteady SHAKE Vanilla 8oz PO SCH ×2 (08:00→12:00)
[2021-08-11] MEDS: methylPREDNISolone SOD SUCC 40 MG/ML VL IV SCH (08:52)
[2021-08-11] MEDS: ASPirin 81 mg TAB PO SCH (08:53)
[2021-08-11] MEDS: CARVEDILOL 12.5 MG TAB PO SCH ×2 (08:53→22:52)
[2021-08-11] MEDS: DIGOXIN 0.125 MG TAB PO SCH (08:54)
[2021-08-11] MEDS: SACUBITRIL-VALSARTAN 24mg/26mg TAB PO SCH ×2 (08:54→22:52)
[2021-08-11] MEDS: APIXABAN 5 MG TAB PO SCH ×2 (08:54→22:52)
[2021-08-11] MEDS: FAMOTIDINE 20 MG TAB PO SCH ×2 (08:54→22:53)
[2021-08-11] MEDS: INSULIN LANTUS (GLARGINE) 1 /0.01ml (100units/ml) SC SCH ×2 (09:01→23:46)
[2021-08-11] MEDS: ATORVASTATIN 20 MG TAB PO SCH (22:53)
[2021-08-11] MEDS: SENNA 8.6 MG TAB PO SCH (22:53)
[2021-08-12] MEDS: HYDROcodone-ACET 5/325MG TAB PO PRN
[2021-08-12] MEDS: ALBUTEROL SULF 2.5 MG/0.5ML(0.5%) NEB SOLN NEB SCH ×3 (02:07→09:57)
[2021-08-12] MEDS: IPRATROPIUM BROM 0.5 MG/2.5ML INH SOL NEB SCH ×3 (02:07→09:57)
[2021-08-12] MEDS: InsuLIN REG 1unit/0.01ml Soln (100units/ml) SC SCH ×2 (04:00→08:00)
[2021-08-12] MEDS: ACCU-CHEK COMFORT CURVE STRIP VI SCH ×2 (04:20→09:10)
[2021-08-12 05:00] VITALS: BP 107/77
[2021-08-12] MEDS: FUROSEMIDE 40 MG TAB PO SCH (06:14)
[2021-08-12 09:00] VITALS: BP 99/71
[2021-08-12] MEDS: Glucerna Carbsteady SHAKE Vanilla 8oz PO SCH (09:10)
[2021-08-12] MEDS: INSULIN LANTUS (GLARGINE) 1 /0.01ml (100units/ml) SC SCH (10:00)
[2021-08-12] MEDS: methylPREDNISolone SOD SUCC 40 MG/ML VL IV SCH (10:12)
[2021-08-12] MEDS: ASPirin 81 mg TAB PO SCH (10:12)
[2021-08-12] MEDS: APIXABAN 5 MG TAB PO SCH (10:13)
[2021-08-12] MEDS: SACUBITRIL-VALSARTAN 24mg/26mg TAB PO SCH (10:13)
[2021-08-12] MEDS: CARVEDILOL 12.5 MG TAB PO SCH (10:13)
[2021-08-12] MEDS: FAMOTIDINE 20 MG TAB PO SCH (10:14)
[2021-08-12] MEDS: DIGOXIN 0.125 MG TAB PO SCH (10:14)
== END 2021-08-12 12:25 | disposition home or self-care (01) | DRG 242 ==
LOC: ER 17:08 → EDBD 17:08 → TELE 07-27 13:22 → TELE-CENTR 07-27 23:22
PROVIDERS: ADMIT Hospitalist; ATTEND Family Medicine
PROC: 5A09357 Assistance with Respiratory Ventilation, Less than 24 Consecutive Hours, Continuous Positive Airway Pressure (ICD-10-PCS; 2021-07-27)
PROC: 5A09357 Assistance with Respiratory Ventilation, Less than 24 Consecutive Hours, Continuous Positive Airway Pressure (ICD-10-PCS; 2021-07-28)
PROC: 5A09357 Assistance with Respiratory Ventilation, Less than 24 Consecutive Hours, Continuous Positive Airway Pressure (ICD-10-PCS; 2021-07-29)
PROC: 0JH604Z Insertion of Pacemaker, Single Chamber into Chest Subcutaneous Tissue and Fascia, Open Approach (ICD-10-PCS; principal; 2021-07-30)
PROC: 02HK3JZ Insertion of Pacemaker Lead into Right Ventricle, Percutaneous Approach (ICD-10-PCS; 2021-07-30)
PROC: 5A09357 Assistance with Respiratory Ventilation, Less than 24 Consecutive Hours, Continuous Positive Airway Pressure (ICD-10-PCS; 2021-07-30)
PROC: 5A09357 Assistance with Respiratory Ventilation, Less than 24 Consecutive Hours, Continuous Positive Airway Pressure (ICD-10-PCS; 2021-08-01)
PROC: 5A09357 Assistance with Respiratory Ventilation, Less than 24 Consecutive Hours, Continuous Positive Airway Pressure (ICD-10-PCS; 2021-08-02)
PROC: 5A09357 Assistance with Respiratory Ventilation, Less than 24 Consecutive Hours, Continuous Positive Airway Pressure (ICD-10-PCS; 2021-08-03)
PROC: 5A09357 Assistance with Respiratory Ventilation, Less than 24 Consecutive Hours, Continuous Positive Airway Pressure (ICD-10-PCS; 2021-08-04)
PROC: 5A09357 Assistance with Respiratory Ventilation, Less than 24 Consecutive Hours, Continuous Positive Airway Pressure (ICD-10-PCS; 2021-08-05)
PROC: 5A09357 Assistance with Respiratory Ventilation, Less than 24 Consecutive Hours, Continuous Positive Airway Pressure (ICD-10-PCS; 2021-08-06)
PROC: 5A09357 Assistance with Respiratory Ventilation, Less than 24 Consecutive Hours, Continuous Positive Airway Pressure (ICD-10-PCS; 2021-08-09)
DX: I11.0 Hypertensive heart disease with heart failure (principal); J96.22 Acute and chronic respiratory failure with hypercapnia; J96.21 Acute and chronic respiratory failure with hypoxia; N17.0 Acute kidney failure with tubular necrosis; J81.0 Acute pulmonary edema; I46.9 Cardiac arrest, cause unspecified; I48.19 Other persistent atrial fibrillation; J84.9 Interstitial pulmonary disease, unspecified; J44.1 Chronic obstructive pulmonary disease with (acute) exacerbation; J45.901 Unspecified asthma with (acute) exacerbation; E44.0 Moderate protein-calorie malnutrition; E87.1 Hypo-osmolality and hyponatremia; D68.69 Other thrombophilia; J98.11 Atelectasis; J44.0 Chronic obstructive pulmonary disease with (acute) lower respiratory infection; Z68.41 Body mass index [BMI] 40.0-44.9, adult; I50.43 Acute on chronic combined systolic (congestive) and diastolic (congestive) heart failure; I42.9 Cardiomyopathy, unspecified; E11.21 Type 2 diabetes mellitus with diabetic nephropathy; E66.01 Morbid (severe) obesity due to excess calories; K21.9 Gastro-esophageal reflux disease without esophagitis; K29.70 Gastritis, unspecified, without bleeding; N18.31 Chronic kidney disease, stage 3a; G47.30 Sleep apnea, unspecified; I34.0 Nonrheumatic mitral (valve) insufficiency; E11.65 Type 2 diabetes mellitus with hyperglycemia; Z20.822 Contact with and (suspected) exposure to COVID-19; E11.22 Type 2 diabetes mellitus with diabetic chronic kidney disease; E78.00 Pure hypercholesterolemia, unspecified; E78.5 Hyperlipidemia, unspecified; F17.200 Nicotine dependence, unspecified, uncomplicated; I25.10 Atherosclerotic heart disease of native coronary artery without angina pectoris; Z68.33 Body mass index [BMI] 33.0-33.9, adult; Z99.81 Dependence on supplemental oxygen; Z88.0 Allergy status to penicillin; Z88.5 Allergy status to narcotic agent; Z88.6 Allergy status to analgesic agent; Z88.8 Allergy status to other drugs, medicaments and biological substances; Z79.01 Long term (current) use of anticoagulants; Z79.4 Long term (current) use of insulin
CPT/HCPCS: 33208; 36415; 36600; 70450; 71045; 71275; 80048; 80053; 80202; 81001; 82533; 82805; 82962; 83036; 83735; 83880; 84443; 84484; 85025; 85379; 85610; 85730; 87040; 87086; 87426; 93005; 93306; 93970; 94640; 94660; 94762; 96365; 96367; 96375; 97110; 97116; 97163; 97530; 99152; 99153; 99291; G0378; J0696; J1815; J1956; J2185; J2250; J3490

== ENCOUNTER 2022-05-17 15:29 | Inpatient (IN) | payer MEDICARE, OTHER ==
[~2022-05-17] VITALS: Ht 170.2 cm; Wt 109.1 kg
[~2022-05-17 15:29] MED LIST: PERCOT PO
[2022-05-17 16:16] LABS: Eosinophils # (auto) 0.1 10 ^3/uL (0-0.8)
[2022-05-17 16:18] LABS: Basophils # (auto) 0.2 10 ^3/uL (0-0.2)
[2022-05-17 16:30] LABS: INR 1.27 (0.9-1.15); Partial Thromboplastin Time 26.2 sec (23.6-33.0)
[2022-05-17 16:33] LABS: Alanine Aminotransferase 14 U/L (13-56); Albumin 2.7 g/dL (3.4-5.0); Anion Gap 7 (5-15); Calcium 9.2 mg/dL (8.5-10.1); Carbon Dioxide 30 mmol/L (21-32); Chloride 105 mmol/L (98-107); Glucose 133 mg/dL (74-106); Magnesium 1.5 mg/dL (1.6-2.6); Sodium 142 mmol/L (136-145)
[2022-05-17 16:38] LABS: Alkaline Phosphatase 127 U/L (45-117); Aspartate Aminotransferase 19 U/L (15-37); BUN/Creatinine Ratio 30.2; Bilirubin, Total 0.5 mg/dL (0.2-1.0); Blood Urea Nitrogen 29 mg/dL (7-18); GFR African American 75 mL/min; GFR Non-African American 62 mL/min; Total Protein 6.1 g/dL (6.4-8.2)
[2022-05-17 16:49] LABS: Monocytes # (auto) 0.5 10 ^3/uL (0-1.3); Neutrophils # (auto) 3.9 10 ^3/uL (1.6-8.6); Nucleated Red Blood Cells % 0.2 %
[2022-05-17 16:51] LABS: Basophils % (auto) 3.2 % (0.0-2.0); Eosinophils % (auto) 1.5 % (0.0-7.0); Hematocrit 44.9 % (36.0-46.0); Hemoglobin 13.6 g/dL (12.2-16.2); Lymphocytes # (auto) 0.9 10 ^3/uL (0.4-5.4); Lymphocytes % (auto) 16.1 % (10.0-50.0); Mean Corpuscular Hgb Conc. 30.3 g/dL (32.0-36.0); Mean Corpuscular Volume 82.7 fL (80.0-100.0); Monocytes % (auto) 8.9 % (0.0-12.0); Neutrophils % (auto) 70.3 % (37.0-80.0); Red Blood Cells 5.43 10^6/uL (4.0-5.20); Red Cell Distribution Width 18.5 % (11.8-14.3); White Blood Cell 5.5 10^3/uL (4.4-10.8)
[2022-05-17] MEDS ORDERED: ONDANSETRON HCL 4 MG/2 ML VIAL IV PRN (21:45)
[2022-05-17] MEDS ORDERED: DOCUSATE SOD 100 MG CAP PO PRN (21:45)
[2022-05-17] MEDS ORDERED: DEXTROSE (50%) 50ML SYRG IV PRN (21:45)
[2022-05-17] MEDS: methylPREDNISolone SOD SUCC 40 MG/ML VL IV SCH (22:00)
[2022-05-17] MEDS ORDERED: methylPREDNISolone SOD SUCC 125 MG/2 ML VL IV ONE (22:15)
[2022-05-17] MEDS: FAMOTIDINE (10MG/ML) 2ML VL IV SCH (22:30)
[2022-05-17] MEDS: SODIUM CHLOR 0.9% PF (SALINE LOCK) 10ML VIAL/SYR IV SCH (22:30)
[2022-05-17] MEDS: CARVEDILOL 3.125 MG TAB PO SCH (22:31)
[2022-05-17] MEDS: InsuLIN REG 1unit/0.01ml Soln (100units/ml) SC SCH (22:32)
[2022-05-17] MEDS: ACCU-CHEK COMFORT CURVE STRIP VI SCH (22:32)
[2022-05-17] MEDS: APIXABAN 5 MG TAB PO SCH (22:32)
[2022-05-17] MEDS: IPRATROPIUM BROM 0.5 MG/2.5ML INH SOL NEB PRN (22:33)
[2022-05-17] MEDS: ALBUTEROL SULF 2.5 MG/0.5ML(0.5%) NEB SOLN NEB PRN (22:33)
[2022-05-17] MEDS ORDERED: MAGNESIUM SULFATE 1GM/100ML 100 ML IV ONE (22:45)
[2022-05-17 23:08] VITALS: BP 109/64
[2022-05-17] MEDS ORDERED: NITROGLYCERIN 0.4 MG SL TAB SL PRN (23:30)
[2022-05-17] MEDS ORDERED: MORPHINE SULFATE INJ 2 MG/ml SYRG IV PRN (23:30)
[2022-05-18 00:30] VITALS: BP 133/69
[2022-05-18] MEDS ORDERED: LORazepam 2MG/ML-1ML VIAL IV PRN (00:45)
[2022-05-18] MEDS ORDERED: IPRATROPIUM BROM 0.5 MG/2.5ML INH SOL NEB ONE (02:00)
[2022-05-18] MEDS ORDERED: ALBUTEROL SULF 2.5 MG/0.5ML(0.5%) NEB SOLN NEB ONE (02:00)
[2022-05-18] MEDS: IPRATROPIUM BROM 0.5 MG/2.5ML INH SOL NEB PRN ×3 (02:35→10:29)
[2022-05-18] MEDS: ALBUTEROL SULF 2.5 MG/0.5ML(0.5%) NEB SOLN NEB PRN ×3 (02:35→10:29)
[2022-05-18 05:00] VITALS: BP 145/77
[2022-05-18] MEDS: InsuLIN REG 1unit/0.01ml Soln (100units/ml) SC SCH ×4 (05:09→22:38)
[2022-05-18] MEDS: ACCU-CHEK COMFORT CURVE STRIP VI SCH ×4 (05:14→22:36)
[2022-05-18] MEDS: SODIUM CHLOR 0.9% PF (SALINE LOCK) 10ML VIAL/SYR IV SCH ×3 (05:15→22:34)
[2022-05-18] MEDS ORDERED: FUROSEMIDE 20 MG/2 ML VIAL IV SCH (06:00)
[2022-05-18 06:23] LABS: Basophils # (auto) 0.1 10 ^3/uL (0-0.2); Basophils % (auto) 1.9 % (0.0-2.0); Eosinophils # (auto) 0 10 ^3/uL (0-0.8); Eosinophils % (auto) 0.2 % (0.0-7.0); Hematocrit 44.5 % (36.0-46.0); Hemoglobin 13.8 g/dL (12.2-16.2); Lymphocytes # (auto) 0.3 10 ^3/uL (0.4-5.4); Lymphocytes % (auto) 5.8 % (10.0-50.0); Mean Corpuscular Hemoglobin 25.6 pg (28.0-32.0); Mean Corpuscular Hgb Conc. 31.1 g/dL (32.0-36.0); Mean Corpuscular Volume 82.2 fL (80.0-100.0); Monocytes # (auto) 0.1 10 ^3/uL (0-1.3); Neutrophils # (auto) 5.3 10 ^3/uL (1.6-8.6); Neutrophils % (auto) 91.1 % (37.0-80.0); Red Blood Cells 5.42 10^6/uL (4.0-5.20); Red Cell Distribution Width 18.5 % (11.8-14.3); White Blood Cell 5.8 10^3/uL (4.4-10.8)
[2022-05-18 06:41] LABS: Albumin 2.8 g/dL (3.4-5.0); Calcium 9.8 mg/dL (8.5-10.1)
[2022-05-18 06:45] LABS: Bilirubin, Total 0.8 mg/dL (0.2-1.0); Total Protein 6.6 g/dL (6.4-8.2)
[2022-05-18 08:00] VITALS: BP 104/64
[2022-05-18] MEDS: FAMOTIDINE (10MG/ML) 2ML VL IV SCH ×2 (11:25→22:34)
[2022-05-18] MEDS: methylPREDNISolone SOD SUCC 40 MG/ML VL IV SCH (11:26)
[2022-05-18] MEDS: CARVEDILOL 3.125 MG TAB PO SCH ×2 (11:29→22:35)
[2022-05-18] MEDS: APIXABAN 5 MG TAB PO SCH ×2 (11:29→22:35)
[2022-05-18 12:00] VITALS: BP 140/72
[2022-05-18] MEDS ORDERED: BUMETANIDE 2.5mg/10ml (0.25 mg/ml) INJ IV ONE (12:45)
[2022-05-18] MEDS ORDERED: AZITHROMYCIN 500MG/ 250ML 250 ML IV ONE (12:45)
[2022-05-18] MEDS ORDERED: cefTRIAXone 1GM/50ML D5W 50 ML IV ONE (12:45)
[2022-05-18 16:00] VITALS: BP 144/67
[2022-05-18 16:15] LABS: Urine Bacteria MOD /hpf (None Seen); Urine Blood 3+ /uL (Negative); Urine Hyaline Cast FEW /lpf (0 - 2); Urine Mucus FEW (None Seen); Urine Specific Gravity 1.009 (1.001-1.035); Urine WBC 49 /hpf (0 - 5)
[2022-05-18] MEDS: BUMETANIDE 2.5mg/10ml (0.25 mg/ml) INJ IV SCH (18:45)
[2022-05-18 22:00] VITALS: BP 132/75
[2022-05-18] MEDS: LORazepam 2MG/ML-1ML VIAL IV PRN (22:35)
[2022-05-19] VITALS (8 sets, daily range): BP systolic 104–143; BP diastolic 59–87
[2022-05-19 06:19] LABS: Basophils # (auto) 0 10 ^3/uL (0-0.2); Basophils % (auto) 0.1 % (0.0-2.0); Eosinophils # (auto) 0 10 ^3/uL (0-0.8); Hematocrit 42.8 % (36.0-46.0); Hemoglobin 13.4 g/dL (12.2-16.2); Lymphocytes # (auto) 0.6 10 ^3/uL (0.4-5.4); Lymphocytes % (auto) 7.1 % (10.0-50.0); Mean Corpuscular Hemoglobin 25.5 pg (28.0-32.0); Mean Corpuscular Hgb Conc. 31.3 g/dL (32.0-36.0); Mean Corpuscular Volume 81.7 fL (80.0-100.0); Monocytes # (auto) 0.5 10 ^3/uL (0-1.3); Monocytes % (auto) 5.4 % (0.0-12.0); Neutrophils # (auto) 7.5 10 ^3/uL (1.6-8.6); Neutrophils % (auto) 87.4 % (37.0-80.0); Nucleated Red Blood Cells % 0.1 %; Red Blood Cells 5.23 10^6/uL (4.0-5.20); Red Cell Distribution Width 18.6 % (11.8-14.3); White Blood Cell 8.6 10^3/uL (4.4-10.8)
[2022-05-19 06:27] LABS: BUN/Creatinine Ratio 35.1
[2022-05-19 06:28] LABS: Calcium 9.9 mg/dL (8.5-10.1)
[2022-05-19] MEDS: BUMETANIDE 2.5mg/10ml (0.25 mg/ml) INJ IV SCH (06:35)
[2022-05-19] MEDS: SODIUM CHLOR 0.9% PF (SALINE LOCK) 10ML VIAL/SYR IV SCH ×3 (06:35→22:52)
[2022-05-19] MEDS: ACCU-CHEK COMFORT CURVE STRIP VI SCH ×4 (06:55→22:53)
[2022-05-19] MEDS: InsuLIN REG 1unit/0.01ml Soln (100units/ml) SC SCH ×4 (06:56→22:56)
[2022-05-19] MEDS: cefTRIAXone 1GM/50ML D5W 50 ML IV SCH (08:34)
[2022-05-19] MEDS: AZITHROMYCIN 500MG/ 250ML 250 ML IV SCH (10:32)
[2022-05-19] MEDS: FAMOTIDINE (10MG/ML) 2ML VL IV SCH ×2 (10:32→22:52)
[2022-05-19] MEDS: CARVEDILOL 3.125 MG TAB PO SCH ×2 (10:33→22:53)
[2022-05-19] MEDS: APIXABAN 5 MG TAB PO SCH ×2 (10:33→22:53)
[2022-05-19] MEDS: ACETAMINOPHEN 325 MG TAB PO PRN (23:23)
[2022-05-20 05:29] VITALS: BP 112/74
[2022-05-20] MEDS: BUMETANIDE 2.5mg/10ml (0.25 mg/ml) INJ IV SCH ×3 (06:06→17:56)
[2022-05-20] MEDS: SODIUM CHLOR 0.9% PF (SALINE LOCK) 10ML VIAL/SYR IV SCH ×3 (06:06→21:50)
[2022-05-20] MEDS: ACCU-CHEK COMFORT CURVE STRIP VI SCH ×4 (06:33→21:51)
[2022-05-20] MEDS: InsuLIN REG 1unit/0.01ml Soln (100units/ml) SC SCH ×4 (06:34→21:56)
[2022-05-20 08:00] VITALS: BP_SYST 104; BP_SYST 134; BP_DIAS 67; BP_DIAS 74
[2022-05-20] MEDS: cefTRIAXone 1GM/50ML D5W 50 ML IV SCH (09:17)
[2022-05-20] MEDS: AZITHROMYCIN 500MG/ 250ML 250 ML IV SCH (09:17)
[2022-05-20] MEDS: FAMOTIDINE (10MG/ML) 2ML VL IV SCH (09:17)
[2022-05-20] MEDS: CARVEDILOL 3.125 MG TAB PO SCH ×2 (09:18→21:55)
[2022-05-20] MEDS: APIXABAN 5 MG TAB PO SCH ×2 (09:18→21:55)
[2022-05-20] MEDS: LORazepam 2MG/ML-1ML VIAL IV PRN (11:08)
[2022-05-20 12:00] VITALS: BP 138/80
[2022-05-20] MEDS ORDERED: SUCCINYLCHOLINE CHLORIDE 20 MG/ML 10ML VIAL IV ONE (18:13)
[2022-05-20] MEDS: ACETAMINOPHEN 325 MG TAB PO PRN (19:57)
[2022-05-20 22:00] VITALS: BP 114/66
[2022-05-21] VITALS (7 sets, daily range): BP systolic 104–141; BP diastolic 64–85
[2022-05-21 05:46] LABS: Hemoglobin 12.7 g/dL (12.2-16.2); Monocytes # (auto) 0.5 10 ^3/uL (0-1.3); Neutrophils # (auto) 3.9 10 ^3/uL (1.6-8.6); Nucleated Red Blood Cells % 0.1 %
[2022-05-21 05:51] LABS: Basophils # (auto) 0 10 ^3/uL (0-0.2); Basophils % (auto) 0.7 % (0.0-2.0); Eosinophils # (auto) 0 10 ^3/uL (0-0.8); Eosinophils % (auto) 0.8 % (0.0-7.0); Hematocrit 41.5 % (36.0-46.0); Lymphocytes # (auto) 0.9 10 ^3/uL (0.4-5.4); Lymphocytes % (auto) 17.4 % (10.0-50.0); Mean Corpuscular Hemoglobin 25.1 pg (28.0-32.0); Mean Corpuscular Hgb Conc. 30.6 g/dL (32.0-36.0); Mean Corpuscular Volume 81.9 fL (80.0-100.0); Monocytes % (auto) 8.6 % (0.0-12.0); Neutrophils % (auto) 72.5 % (37.0-80.0); Red Blood Cells 5.06 10^6/uL (4.0-5.20); Red Cell Distribution Width 18.5 % (11.8-14.3); White Blood Cell 5.3 10^3/uL (4.4-10.8)
[2022-05-21 05:59] LABS: BUN/Creatinine Ratio 34.8; Calcium 9.3 mg/dL (8.5-10.1); Potassium 4.3 mmol/L (3.5-5.1)
[2022-05-21] MEDS: SODIUM CHLOR 0.9% PF (SALINE LOCK) 10ML VIAL/SYR IV SCH ×3 (06:11→21:36)
[2022-05-21] MEDS: BUMETANIDE 2.5mg/10ml (0.25 mg/ml) INJ IV SCH ×2 (06:11→18:12)
[2022-05-21] MEDS: ACCU-CHEK COMFORT CURVE STRIP VI SCH ×4 (06:25→21:37)
[2022-05-21] MEDS: InsuLIN REG 1unit/0.01ml Soln (100units/ml) SC SCH ×4 (06:25→21:33)
[2022-05-21] MEDS: cefTRIAXone 1GM/50ML D5W 50 ML IV SCH (10:23)
[2022-05-21] MEDS: CARVEDILOL 3.125 MG TAB PO SCH ×2 (10:23→21:36)
[2022-05-21] MEDS: AZITHROMYCIN 250 MG TAB PO SCH (10:24)
[2022-05-21] MEDS: FAMOTIDINE 20 MG TAB PO SCH (10:24)
[2022-05-21] MEDS: APIXABAN 5 MG TAB PO SCH ×2 (10:24→21:36)
[2022-05-21] MEDS ORDERED: SALINE 0.65 % NASAL SPRAY 45ML BOTTLE EACHNOSTRI ONE (14:00)
[2022-05-21] MEDS: SALINE 0.65 % NASAL SPRAY 45ML BOTTLE EACHNOSTRI SCH ×2 (18:11→21:36)
[2022-05-21] MEDS: ALPRAZolam 0.25 MG TAB PO PRN (21:37)
[2022-05-22 05:00] VITALS: BP 116/71
[2022-05-22] MEDS: SALINE 0.65 % NASAL SPRAY 45ML BOTTLE EACHNOSTRI SCH ×4 (05:41→21:59)
[2022-05-22] MEDS: SODIUM CHLOR 0.9% PF (SALINE LOCK) 10ML VIAL/SYR IV SCH ×3 (05:42→21:59)
[2022-05-22] MEDS: BUMETANIDE 2.5mg/10ml (0.25 mg/ml) INJ IV SCH ×2 (05:42→17:34)
[2022-05-22] MEDS: ACCU-CHEK COMFORT CURVE STRIP VI SCH ×4 (06:18→22:00)
[2022-05-22] MEDS: InsuLIN REG 1unit/0.01ml Soln (100units/ml) SC SCH ×4 (06:18→22:07)
[2022-05-22 08:00] VITALS: BP 104/67
[2022-05-22 09:00] VITALS: BP 133/74
[2022-05-22] MEDS: cefTRIAXone 1GM/50ML D5W 50 ML IV SCH (09:36)
[2022-05-22] MEDS: CARVEDILOL 3.125 MG TAB PO SCH ×2 (09:37→21:59)
[2022-05-22] MEDS: APIXABAN 5 MG TAB PO SCH ×2 (09:37→21:59)
[2022-05-22] MEDS: FAMOTIDINE 20 MG TAB PO SCH (09:37)
[2022-05-22] MEDS: AZITHROMYCIN 250 MG TAB PO SCH (09:37)
[2022-05-22 09:59] LABS: Anion Gap 8 (5-15); BUN/Creatinine Ratio 37.9; Blood Urea Nitrogen 36 mg/dL (7-18); Calcium 9.2 mg/dL (8.5-10.1); Carbon Dioxide 37 mmol/L (21-32); Chloride 96 mmol/L (98-107); GFR African American 76 mL/min; GFR Non-African American 63 mL/min; Glucose 80 mg/dL (74-106); Potassium 4.6 mmol/L (3.5-5.1); Sodium 141 mmol/L (136-145)
[2022-05-22] MEDS ORDERED: metOLazone 5 MG TAB PO ONE (11:15)
[2022-05-22 13:00] VITALS: BP 136/76
[2022-05-22 17:00] VITALS: BP 113/58
[2022-05-22] MEDS: ACETAMINOPHEN 325 MG TAB PO PRN (20:19)
[2022-05-22 22:00] VITALS: BP 120/75
[2022-05-22] MEDS: ALPRAZolam 0.25 MG TAB PO PRN (22:36)
[2022-05-23] MEDS: ACETAMINOPHEN 325 MG TAB PO PRN ×3 (03:59→22:07)
[2022-05-23 05:00] VITALS: BP 132/69
[2022-05-23] MEDS: SALINE 0.65 % NASAL SPRAY 45ML BOTTLE EACHNOSTRI SCH ×4 (05:24→22:06)
[2022-05-23] MEDS: BUMETANIDE 2.5mg/10ml (0.25 mg/ml) INJ IV SCH ×2 (05:25→18:21)
[2022-05-23] MEDS: SODIUM CHLOR 0.9% PF (SALINE LOCK) 10ML VIAL/SYR IV SCH ×3 (05:25→22:06)
[2022-05-23] MEDS: ACCU-CHEK COMFORT CURVE STRIP VI SCH ×4 (06:19→22:07)
[2022-05-23] MEDS: InsuLIN REG 1unit/0.01ml Soln (100units/ml) SC SCH ×4 (06:20→22:10)
[2022-05-23 09:00] VITALS: BP 120/80
[2022-05-23] MEDS: FAMOTIDINE 20 MG TAB PO SCH (09:28)
[2022-05-23] MEDS: CARVEDILOL 3.125 MG TAB PO SCH ×2 (09:28→22:06)
[2022-05-23] MEDS: APIXABAN 5 MG TAB PO SCH ×2 (09:28→22:07)
[2022-05-23] MEDS: metOLazone 5 MG TAB PO SCH (09:28)
[2022-05-23] MEDS: cefTRIAXone 1GM/50ML D5W 50 ML IV SCH (09:29)
[2022-05-23] MEDS: AZITHROMYCIN 250 MG TAB PO SCH (09:29)
[2022-05-23 13:00] VITALS: BP 126/66
[2022-05-23 17:01] VITALS: BP 132/72
[2022-05-23] MEDS: ALPRAZolam 0.25 MG TAB PO PRN (22:07)
[2022-05-23 22:52] VITALS: BP 130/63
[2022-05-24 00:24] VITALS: BP 130/63
[2022-05-24 05:33] VITALS: BP 104/61
[2022-05-24 06:18] LABS: BUN/Creatinine Ratio 33.3; Calcium 10.1 mg/dL (8.5-10.1); Potassium 3.5 mmol/L (3.5-5.1)
[2022-05-24] MEDS: BUMETANIDE 2.5mg/10ml (0.25 mg/ml) INJ IV SCH ×2 (06:25→17:51)
[2022-05-24] MEDS: ACCU-CHEK COMFORT CURVE STRIP VI SCH ×4 (06:25→22:29)
[2022-05-24] MEDS: SALINE 0.65 % NASAL SPRAY 45ML BOTTLE EACHNOSTRI SCH ×4 (06:25→21:01)
[2022-05-24] MEDS: SODIUM CHLOR 0.9% PF (SALINE LOCK) 10ML VIAL/SYR IV SCH ×3 (06:25→21:01)
[2022-05-24] MEDS: InsuLIN REG 1unit/0.01ml Soln (100units/ml) SC SCH ×4 (06:25→22:30)
[2022-05-24 08:00] VITALS: BP 123/70
[2022-05-24] MEDS: cefTRIAXone 1GM/50ML D5W 50 ML IV SCH (09:44)
[2022-05-24] MEDS: AZITHROMYCIN 250 MG TAB PO SCH (09:45)
[2022-05-24] MEDS: APIXABAN 5 MG TAB PO SCH ×2 (09:45→22:28)
[2022-05-24] MEDS: FAMOTIDINE 20 MG TAB PO SCH (09:45)
[2022-05-24] MEDS: CARVEDILOL 3.125 MG TAB PO SCH ×2 (09:45→22:28)
[2022-05-24] MEDS: metOLazone 5 MG TAB PO SCH (09:46)
[2022-05-24 12:00] VITALS: BP 124/65
[2022-05-24 16:00] VITALS: BP 124/81
[2022-05-24] MEDS: ALPRAZolam 0.25 MG TAB PO PRN (21:00)
[2022-05-24 22:00] VITALS: BP 120/67
[2022-05-24] MEDS: ACETAMINOPHEN 325 MG TAB PO PRN (23:20)
[2022-05-25 05:00] VITALS: BP 114/60
[2022-05-25] MEDS: SALINE 0.65 % NASAL SPRAY 45ML BOTTLE EACHNOSTRI SCH ×4 (05:13→22:04)
[2022-05-25] MEDS: SODIUM CHLOR 0.9% PF (SALINE LOCK) 10ML VIAL/SYR IV SCH ×3 (05:14→22:05)
[2022-05-25] MEDS: BUMETANIDE 2.5mg/10ml (0.25 mg/ml) INJ IV SCH ×2 (05:15→17:34)
[2022-05-25 06:05] LABS: Basophils # (auto) 0 10 ^3/uL (0-0.2); Basophils % (auto) 0.6 % (0.0-2.0); Eosinophils # (auto) 0.1 10 ^3/uL (0-0.8); Eosinophils % (auto) 1.4 % (0.0-7.0); Hematocrit 41.3 % (36.0-46.0); Hemoglobin 12.9 g/dL (12.2-16.2); Lymphocytes # (auto) 0.9 10 ^3/uL (0.4-5.4); Mean Corpuscular Hemoglobin 25.5 pg (28.0-32.0); Mean Corpuscular Hgb Conc. 31.1 g/dL (32.0-36.0); Mean Corpuscular Volume 81.9 fL (80.0-100.0); Monocytes # (auto) 0.9 10 ^3/uL (0-1.3); Monocytes % (auto) 11.7 % (0.0-12.0); Neutrophils # (auto) 5.8 10 ^3/uL (1.6-8.6); Neutrophils % (auto) 74.3 % (37.0-80.0); Red Blood Cells 5.04 10^6/uL (4.0-5.20); Red Cell Distribution Width 18.6 % (11.8-14.3); White Blood Cell 7.8 10^3/uL (4.4-10.8)
[2022-05-25 06:09] LABS: Blood Urea Nitrogen 28 mg/dL (7-18); Calcium 10.2 mg/dL (8.5-10.1); Chloride 84 mmol/L (98-107); Glucose 188 mg/dL (74-106); Potassium 3.4 mmol/L (3.5-5.1); Sodium 136 mmol/L (136-145)
[2022-05-25 06:11] LABS: BUN/Creatinine Ratio 29.8; GFR African American 77 mL/min; GFR Non-African American 63 mL/min
[2022-05-25] MEDS: ACCU-CHEK COMFORT CURVE STRIP VI SCH ×4 (06:18→22:06)
[2022-05-25] MEDS: InsuLIN REG 1unit/0.01ml Soln (100units/ml) SC SCH ×4 (06:19→22:07)
[2022-05-25 06:20] LABS: Anion Gap 6.99999 (5-15)
[2022-05-25 06:22] LABS: Carbon Dioxide > 45 mmol/L (21-32)
[2022-05-25 09:00] VITALS: BP 111/73
[2022-05-25] MEDS: AZITHROMYCIN 250 MG TAB PO SCH (09:30)
[2022-05-25] MEDS: metOLazone 5 MG TAB PO SCH (09:30)
[2022-05-25] MEDS: cefTRIAXone 1GM/50ML D5W 50 ML IV SCH (09:31)
[2022-05-25] MEDS: APIXABAN 5 MG TAB PO SCH ×2 (09:31→22:05)
[2022-05-25] MEDS: FAMOTIDINE 20 MG TAB PO SCH (09:31)
[2022-05-25] MEDS: CARVEDILOL 3.125 MG TAB PO SCH ×2 (09:31→22:00)
[2022-05-25] MEDS: ACETAMINOPHEN 325 MG TAB PO PRN ×2 (11:45→18:52)
[2022-05-25 13:23] VITALS: BP 155/62
[2022-05-25 17:10] VITALS: BP 132/60
[2022-05-25 22:00] VITALS: BP 101/43
[2022-05-25] MEDS: ALPRAZolam 0.25 MG TAB PO PRN (22:09)
[2022-05-26 05:06] VITALS: BP 121/58
[2022-05-26 06:07] LABS: Calcium 10.2 mg/dL (8.5-10.1); Chloride 85 mmol/L (98-107); Potassium 3.5 mmol/L (3.5-5.1); Sodium 136 mmol/L (136-145)
[2022-05-26 06:13] LABS: Alanine Aminotransferase 20 U/L (13-56); Albumin 2.7 g/dL (3.4-5.0); Alkaline Phosphatase 189 U/L (45-117); Aspartate Aminotransferase 21 U/L (15-37); BUN/Creatinine Ratio 28.9; Bilirubin, Total 0.8 mg/dL (0.2-1.0); Blood Urea Nitrogen 33 mg/dL (7-18); GFR African American 61 mL/min; GFR Non-African American 51 mL/min; Glucose 205 mg/dL (74-106); Magnesium 1.6 mg/dL (1.6-2.6); Total Protein 6.5 g/dL (6.4-8.2)
[2022-05-26 06:17] LABS: Anion Gap 5.99999 (5-15); Carbon Dioxide > 45 mmol/L (21-32)
[2022-05-26] MEDS: SALINE 0.65 % NASAL SPRAY 45ML BOTTLE EACHNOSTRI SCH ×4 (06:36→22:30)
[2022-05-26] MEDS: BUMETANIDE 2.5mg/10ml (0.25 mg/ml) INJ IV SCH ×2 (06:37→17:33)
[2022-05-26] MEDS: SODIUM CHLOR 0.9% PF (SALINE LOCK) 10ML VIAL/SYR IV SCH ×3 (06:37→22:30)
[2022-05-26] MEDS: ACCU-CHEK COMFORT CURVE STRIP VI SCH ×4 (07:21→22:32)
[2022-05-26] MEDS: InsuLIN REG 1unit/0.01ml Soln (100units/ml) SC SCH ×4 (07:22→22:33)
[2022-05-26 09:00] VITALS: BP 125/91
[2022-05-26] MEDS: cefTRIAXone 1GM/50ML D5W 50 ML IV SCH (09:19)
[2022-05-26] MEDS: AZITHROMYCIN 250 MG TAB PO SCH (09:20)
[2022-05-26] MEDS: metOLazone 5 MG TAB PO SCH (09:20)
[2022-05-26] MEDS: FAMOTIDINE 20 MG TAB PO SCH (09:21)
[2022-05-26] MEDS: CARVEDILOL 3.125 MG TAB PO SCH ×2 (09:22→22:31)
[2022-05-26] MEDS: APIXABAN 5 MG TAB PO SCH ×2 (09:22→22:32)
[2022-05-26] MEDS: ACETAMINOPHEN 325 MG TAB PO PRN ×2 (09:28→16:19)
[2022-05-26 13:00] VITALS: BP 112/60
[2022-05-26 17:00] VITALS: BP 130/70
[2022-05-26 22:00] VITALS: BP 116/79
[2022-05-27 03:30] VITALS: BP 117/76
[2022-05-27 05:00] VITALS: BP 110/61
[2022-05-27] MEDS: SALINE 0.65 % NASAL SPRAY 45ML BOTTLE EACHNOSTRI SCH ×4 (06:32→21:45)
[2022-05-27] MEDS: SODIUM CHLOR 0.9% PF (SALINE LOCK) 10ML VIAL/SYR IV SCH ×3 (06:33→21:45)
[2022-05-27] MEDS: BUMETANIDE 2.5mg/10ml (0.25 mg/ml) INJ IV SCH (06:33)
[2022-05-27] MEDS: ACCU-CHEK COMFORT CURVE STRIP VI SCH ×4 (06:46→21:46)
[2022-05-27] MEDS: InsuLIN REG 1unit/0.01ml Soln (100units/ml) SC SCH ×4 (06:46→21:26)
[2022-05-27] MEDS: cefTRIAXone 1GM/50ML D5W 50 ML IV SCH (08:52)
[2022-05-27] MEDS: metOLazone 5 MG TAB PO SCH (08:52)
[2022-05-27] MEDS: CARVEDILOL 3.125 MG TAB PO SCH ×2 (08:53→21:46)
[2022-05-27] MEDS: FAMOTIDINE 20 MG TAB PO SCH (08:53)
[2022-05-27] MEDS: APIXABAN 5 MG TAB PO SCH ×2 (08:53→21:46)
[2022-05-27] MEDS: AZITHROMYCIN 250 MG TAB PO SCH (08:54)
[2022-05-27 09:12] VITALS: BP 119/70
[2022-05-27 13:00] VITALS: BP 112/75
[2022-05-27] MEDS: ACETAMINOPHEN 325 MG TAB PO PRN (14:41)
[2022-05-27 17:12] VITALS: BP 115/73
[2022-05-27] MEDS: ALPRAZolam 0.25 MG TAB PO PRN (21:47)
[2022-05-27 22:00] VITALS: BP 138/67
[2022-05-28 05:00] VITALS: BP 95/65
[2022-05-28] MEDS: SODIUM CHLOR 0.9% PF (SALINE LOCK) 10ML VIAL/SYR IV SCH ×3 (05:40→21:31)
[2022-05-28] MEDS: SALINE 0.65 % NASAL SPRAY 45ML BOTTLE EACHNOSTRI SCH ×4 (05:40→21:31)
[2022-05-28 05:41] LABS: BUN/Creatinine Ratio 37.4; Calcium 10.8 mg/dL (8.5-10.1); Potassium 3.5 mmol/L (3.5-5.1)
[2022-05-28] MEDS: InsuLIN REG 1unit/0.01ml Soln (100units/ml) SC SCH ×4 (06:38→21:27)
[2022-05-28] MEDS: ACCU-CHEK COMFORT CURVE STRIP VI SCH ×4 (06:38→21:31)
[2022-05-28] MEDS: ALBUTEROL SULF 2.5 MG/0.5ML(0.5%) NEB SOLN NEB PRN (07:33)
[2022-05-28] MEDS: IPRATROPIUM BROM 0.5 MG/2.5ML INH SOL NEB PRN (07:33)
[2022-05-28 08:00] VITALS: BP 132/72
[2022-05-28] MEDS: cefTRIAXone 1GM/50ML D5W 50 ML IV SCH (08:42)
[2022-05-28] MEDS: APIXABAN 5 MG TAB PO SCH ×2 (08:42→21:30)
[2022-05-28] MEDS: ACETAMINOPHEN 325 MG TAB PO PRN (08:43)
[2022-05-28] MEDS: CARVEDILOL 3.125 MG TAB PO SCH ×2 (08:45→21:31)
[2022-05-28] MEDS: AZITHROMYCIN 250 MG TAB PO SCH (08:45)
[2022-05-28] MEDS: BUMETANIDE 1 MG TAB PO SCH (08:46)
[2022-05-28 12:00] VITALS: BP 141/73
[2022-05-28] MEDS ORDERED: BUMETANIDE 2.5mg/10ml (0.25 mg/ml) INJ IV ONE (12:45)
[2022-05-28] MEDS ORDERED: POTASSIUM CHL 20 Meq TABLET PO ONE (12:45)
[2022-05-28 16:00] VITALS: BP 98/62
[2022-05-28] MEDS: ALPRAZolam 0.25 MG TAB PO PRN (21:32)
[2022-05-28 22:00] VITALS: BP 111/76
[2022-05-29 05:10] VITALS: BP 118/70
[2022-05-29] MEDS: SALINE 0.65 % NASAL SPRAY 45ML BOTTLE EACHNOSTRI SCH ×4 (05:33→22:17)
[2022-05-29] MEDS: SODIUM CHLOR 0.9% PF (SALINE LOCK) 10ML VIAL/SYR IV SCH ×3 (05:34→22:17)
[2022-05-29] MEDS: InsuLIN REG 1unit/0.01ml Soln (100units/ml) SC SCH ×4 (06:52→22:31)
[2022-05-29] MEDS: ACCU-CHEK COMFORT CURVE STRIP VI SCH ×4 (06:52→22:31)
[2022-05-29 08:00] VITALS: BP 118/81
[2022-05-29] MEDS: cefTRIAXone 1GM/50ML D5W 50 ML IV SCH (09:19)
[2022-05-29] MEDS: BUMETANIDE 1 MG TAB PO SCH (09:20)
[2022-05-29] MEDS: APIXABAN 5 MG TAB PO SCH ×2 (09:21→22:18)
[2022-05-29] MEDS: CARVEDILOL 3.125 MG TAB PO SCH ×2 (09:21→22:18)
[2022-05-29] MEDS: AZITHROMYCIN 250 MG TAB PO SCH (09:22)
[2022-05-29 12:00] VITALS: BP 110/76
[2022-05-29] MEDS: ACETAMINOPHEN 325 MG TAB PO PRN (13:18)
[2022-05-29 16:00] VITALS: BP 124/79
[2022-05-29 22:00] VITALS: BP 113/61
[2022-05-29] MEDS: ALPRAZolam 0.25 MG TAB PO PRN (23:24)
[2022-05-30 00:44] VITALS: BP 113/61
[2022-05-30 05:00] VITALS: BP 115/62
[2022-05-30] MEDS: SALINE 0.65 % NASAL SPRAY 45ML BOTTLE EACHNOSTRI SCH ×4 (06:26→22:17)
[2022-05-30] MEDS: ACCU-CHEK COMFORT CURVE STRIP VI SCH ×4 (06:27→22:21)
[2022-05-30] MEDS: SODIUM CHLOR 0.9% PF (SALINE LOCK) 10ML VIAL/SYR IV SCH ×3 (06:27→22:17)
[2022-05-30] MEDS: InsuLIN REG 1unit/0.01ml Soln (100units/ml) SC SCH ×4 (06:27→22:20)
[2022-05-30 09:00] VITALS: BP 114/87
[2022-05-30] MEDS ORDERED: POTASSIUM CHL 10 Meq TABLET PO ONE (11:15)
[2022-05-30] MEDS: CARVEDILOL 3.125 MG TAB PO SCH ×2 (12:25→22:19)
[2022-05-30] MEDS: cefTRIAXone 1GM/50ML D5W 50 ML IV SCH (12:25)
[2022-05-30] MEDS: APIXABAN 5 MG TAB PO SCH ×2 (12:26→22:19)
[2022-05-30] MEDS: AZITHROMYCIN 250 MG TAB PO SCH (12:27)
[2022-05-30 13:00] VITALS: BP 98/66
[2022-05-30] MEDS: ACETAMINOPHEN 325 MG TAB PO PRN (15:03)
[2022-05-30 16:54] VITALS: BP 134/77
[2022-05-30 22:00] VITALS: BP 105/62
[2022-05-30] MEDS: POTASSIUM CHL 10 Meq TABLET PO SCH ×2 (22:00→22:21)
[2022-05-30] MEDS: BUMETANIDE 1 MG TAB PO SCH ×2 (22:00→22:19)
[2022-05-30] MEDS: ALPRAZolam 0.25 MG TAB PO PRN (23:06)
[2022-05-31 05:00] VITALS: BP 100/56
[2022-05-31] MEDS: SALINE 0.65 % NASAL SPRAY 45ML BOTTLE EACHNOSTRI SCH ×2 (05:37→12:00)
[2022-05-31] MEDS: SODIUM CHLOR 0.9% PF (SALINE LOCK) 10ML VIAL/SYR IV SCH ×2 (05:37→13:46)
[2022-05-31] MEDS: ACCU-CHEK COMFORT CURVE STRIP VI SCH ×2 (06:03→11:30)
[2022-05-31] MEDS: InsuLIN REG 1unit/0.01ml Soln (100units/ml) SC SCH ×2 (06:05→13:46)
[2022-05-31 09:00] VITALS: BP 114/85
[2022-05-31] MEDS: cefTRIAXone 1GM/50ML D5W 50 ML IV SCH (09:13)
[2022-05-31] MEDS: BUMETANIDE 1 MG TAB PO SCH (09:14)
[2022-05-31 13:00] VITALS: BP 95/57
[2022-05-31] MEDS: POTASSIUM CHL 10 Meq TABLET PO SCH (13:43)
[2022-05-31] MEDS: APIXABAN 5 MG TAB PO SCH (13:43)
[2022-05-31] MEDS: AZITHROMYCIN 250 MG TAB PO SCH (13:43)
[2022-05-31] MEDS: CARVEDILOL 3.125 MG TAB PO SCH (13:48)
== END 2022-05-31 16:00 | DRG 193 ==
LOC: EDBD 15:29 → ER 15:29 → TELE 23:21 → TELE-EAST 23:56 → EAST 05-30 12:19
PROVIDERS: ADMIT Nurse Practitioner Family; ATTEND Internal Medicine
PROC: 5A09357 Assistance with Respiratory Ventilation, Less than 24 Consecutive Hours, Continuous Positive Airway Pressure (ICD-10-PCS; 2022-05-17)
PROC: 5A09357 Assistance with Respiratory Ventilation, Less than 24 Consecutive Hours, Continuous Positive Airway Pressure (ICD-10-PCS; principal; 2022-05-18)
PROC: 5A09357 Assistance with Respiratory Ventilation, Less than 24 Consecutive Hours, Continuous Positive Airway Pressure (ICD-10-PCS; 2022-05-19)
PROC: 5A09357 Assistance with Respiratory Ventilation, Less than 24 Consecutive Hours, Continuous Positive Airway Pressure (ICD-10-PCS; 2022-05-20)
PROC: 5A09357 Assistance with Respiratory Ventilation, Less than 24 Consecutive Hours, Continuous Positive Airway Pressure (ICD-10-PCS; 2022-05-21)
PROC: 5A09357 Assistance with Respiratory Ventilation, Less than 24 Consecutive Hours, Continuous Positive Airway Pressure (ICD-10-PCS; 2022-05-22)
PROC: 5A09357 Assistance with Respiratory Ventilation, Less than 24 Consecutive Hours, Continuous Positive Airway Pressure (ICD-10-PCS; 2022-05-23)
PROC: 5A09357 Assistance with Respiratory Ventilation, Less than 24 Consecutive Hours, Continuous Positive Airway Pressure (ICD-10-PCS; 2022-05-24)
PROC: 5A09357 Assistance with Respiratory Ventilation, Less than 24 Consecutive Hours, Continuous Positive Airway Pressure (ICD-10-PCS; 2022-05-26)
PROC: 5A09357 Assistance with Respiratory Ventilation, Less than 24 Consecutive Hours, Continuous Positive Airway Pressure (ICD-10-PCS; 2022-05-27)
PROC: 5A09357 Assistance with Respiratory Ventilation, Less than 24 Consecutive Hours, Continuous Positive Airway Pressure (ICD-10-PCS; 2022-05-28)
PROC: 5A09357 Assistance with Respiratory Ventilation, Less than 24 Consecutive Hours, Continuous Positive Airway Pressure (ICD-10-PCS; 2022-05-29)
PROC: 5A09357 Assistance with Respiratory Ventilation, Less than 24 Consecutive Hours, Continuous Positive Airway Pressure (ICD-10-PCS; 2022-05-30)
PROC: 5A09357 Assistance with Respiratory Ventilation, Less than 24 Consecutive Hours, Continuous Positive Airway Pressure (ICD-10-PCS; 2022-05-31)
DX: J18.9 Pneumonia, unspecified organism (principal); I50.23 Acute on chronic systolic (congestive) heart failure; J96.21 Acute and chronic respiratory failure with hypoxia; J96.22 Acute and chronic respiratory failure with hypercapnia; J44.1 Chronic obstructive pulmonary disease with (acute) exacerbation; E66.2 Morbid (severe) obesity with alveolar hypoventilation; D68.69 Other thrombophilia; N39.0 Urinary tract infection, site not specified; E46 Unspecified protein-calorie malnutrition; J44.0 Chronic obstructive pulmonary disease with (acute) lower respiratory infection; Z68.42 Body mass index [BMI] 45.0-49.9, adult; I42.9 Cardiomyopathy, unspecified; Z20.822 Contact with and (suspected) exposure to COVID-19; E83.42 Hypomagnesemia; I48.91 Unspecified atrial fibrillation; E11.9 Type 2 diabetes mellitus without complications; I11.0 Hypertensive heart disease with heart failure; Z88.0 Allergy status to penicillin; Z88.5 Allergy status to narcotic agent; Z88.6 Allergy status to analgesic agent; Z88.8 Allergy status to other drugs, medicaments and biological substances; Z95.0 Presence of cardiac pacemaker; Z75.1 Person awaiting admission to adequate facility elsewhere
CPT/HCPCS: 36415; 36600; 71045; 80048; 80053; 81001; 82728; 82805; 82962; 83036; 83605; 83735; 83880; 84443; 84484; 85025; 85610; 85730; 86141; 87040; 93005; 93306; 94640; 94660; 96365; 96375; 97110; 97116; 97530; G0378; J0330; J0696; J1815; J2405; J3490